=== PATIENT | female | born 1940 | race Caucasian/White ===

== ENCOUNTER → 2019-04-22 13:17 | Outpatient (CLI) | payer MEDICARE, SELFPAY ==
--- NOTE | 2019-04-22 13:24 | XR_ITS ---
XR DEXA axial skeleton HISTORY: ITS.REASON: OSTEOPENIA ORDERING PHYSICIAN: Sera Vivar PATIENT AGE: 79 years COMPARISON: None FINDINGS: The BMD measured at the Right femoral neck is 0.717 g/cm squared with a T score of -2.3. This is considered Osteopenic according to the World Health Organization criteria. Fracture risk is Moderate. Treatment is advised. The L1 L4 density has a T score 1.3. There is mild lumbar scoliosis convex right IMPRESSION: Osteopenia with moderate fracture risk. Treatment advised Suggest follow up exam march 2021
--- NOTE | 2019-04-22 13:25 | US_ITS ---
US urinary bladder CLINICAL INDICATION: ITS.REASON: URINARY INCONTINENCE ORDERING PHYSICIAN: Sera Vivar PATIENT AGE: 79 years Comparison: None FINDINGS: The urinary bladder has an unremarkable appearance smooth contour. No obvious mass. A small amount of postvoid residual urine calculated to be approximately 32 cc. IMPRESSION: 1. Mild amount of postvoid residual urine within the bladder 2. Otherwise negative bladder ultrasound
== END ==
PROVIDERS: PCP Family Medicine; Visit Provider Family Medicine
DX: M85.89 Other specified disorders of bone density and structure, multiple sites (principal); R32 Unspecified urinary incontinence
CPT/HCPCS: 76857; 77080

== ENCOUNTER 2021-04-20 09:36 | Inpatient (IN) | payer MEDICARE, BC, SELFPAY ==
[2021-04-20] VITALS (46 sets, daily range): BP systolic 62–150; BP diastolic 32–95; PULSE 61–148; RESP 12–21; TEMP 36.1–43; O2SAT 93–100; BMI 19.9; BMI 20.7
--- NOTE | 2021-04-20 | IR_ITS ---
APPROVED REPORT Patient Location: Emergent Hydropress Operator: MICHAEL Cueva RT (R) PROCEDURES Left heart catheterization Left ventriculogram Selective coronary angiogram Direct-current cardioversion INDICATION Acute non-ST elevation myocardial infarction, Preoperative evaluation for emergent incarcerated bowel/inguinal hernia, Atrial fibrillation rapid ventricular response, Type II myocardial infarction Informed consent was obtained prior to the procedure. COMPLICATIONS None Estimated Blood Loss: Less than 10 mls TECHNIQUE One percent lidocaine was used to anesthetize the right groin. The right femoral artery was accessed via the Seldinger technique. A 4-English sheath was placed in the right femoral artery. The JL-4 and JR-4 catheter was also used to perform left heart catheterization left ventriculogram and selective coronary angiogram. During the cardiac catheterization amiodarone load was being bolused with tentative plans to cardiovert patient due to her clinical situation. At the end of the procedure multiple severe stenoses were identified however the majority of the disease was branch disease involving an obtuse marginal artery and a diagonal artery. There was single-vessel disease involving the dominant right coronary artery however she had normal LV function with normal left ventricular end-diastolic pressure. Given patient's atrial fibrillation with elevated troponins representing demand ischemia with a type II myocardial infarction it was felt patient would do better with cardioversion therefore she was sedate and 50 J of direct current electricity was applied in a synchronized manner which easily converted patient into sinus rhythm. Patient tolerated the procedure well. At the end of the procedure patient is now being emergently transferred to the operating room for planned surgical intervention on the incarcerated hernia ANGIOGRAPHIC RESULTS The left main artery Normal The left anterior descending artery Has mild proximal 20% stenoses with mid vessel 20 and 30% stenoses. A moderate sized first diagonal artery has a long concentric 80% stenosis. This is a 2 mm vessel The circumflex artery Is a nondominant vessel yet still large giving rise to 3 moderate-sized first obtuse marginal arteries.. The first obtuse marginal artery is the smallest of the vessels at 1.5 mm in diameter and has a proximal concentric 70 to 80% stenosis while the second obtuse marginal artery is slightly larger so at 1.5 mm in diameter and has a proximal concentric 90% stenosis. The third obtuse marginal artery is widely patent The right coronary artery Is a dominant vessel and has an ostial 70% stenosis with mid vessel concentric 80% stenoses and distal 70% concentric stenosis with REBECCA-3 flow into a large posterior descending artery and a posterior lateral branch with a mid vessel 50% stenosis The OCONNELL ventriculogram reveals Normal to slightly hyperdynamic at 70% The left ventricular end-diastolic pressure Less than 10 mmHg IMPRESSION Severe single-vessel coronary artery disease involving the right coronary artery as described above Branch coronary artery disease involving the diagonal artery and first and second obtuse marginal arteries Normal to hyperdynamic ventricular function Normal left ventricular end-diastolic pressure Successful cardioversion into normal sinus rhythm PLAN 1. Patient is an acceptable risk from a cardiac standpoint to proceed with surgery. She has been successfully cardioverted and currently on an amiodarone drip. Patient's myocardial infarction is a type II myocardial infarction which is secondary to demand ischemia due to her fixed coronary obstructions mostly in her branch
--- NOTE | 2021-04-20 09:52 | ECG_ITS ---
APPROVED REPORT Exam: Resting ECG HR:154 bpm ECG Measurements Heart Rate 154 AXES QRSd 74 QRS 41 QT 296 T 101 QTc 474 Conclusion Atrial fibrillation with rapid ventricular response Nonspecific ST and T wave abnormality, probably digitalis effect Abnormal ECG Electronically signed by : Uriel Francois, 04/22/2021 07:30:12
--- NOTE | 2021-04-20 09:56 | HMH.EDGENADL ---
ED Disposition Clinical Impression: Rapid atrial fibrillation, New onset atrial fibrillation, Elevated troponin, Dehydration, Weakness, Incarcerated inguinal hernia, Small bowel obstruction Vomiting Qualifiers: Vomiting type: unspecified Vomiting Intractability: intractable Nausea presence: with nausea Qualified Code(s): R11.2 - Nausea with vomiting, unspecified Abdominal pain Qualifiers: Abdominal location: generalized Qualified Code(s): R10.84 - Generalized abdominal pain Disposition: Admitted As Inpatient Condition on Discharge: Serious Referrals: Sera Vivar [Primary Care Provider] - - Critical Care Critical Care Time: Yes Attestation: On 04/20/21, the high probability of a clinically significant, sudden or life threatening deterioration of the following system(s) required my full and direct attention, intervention and personal management. The time I documented below is in addition to time spent performing reported procedures but includes the following listed in this critical care notation. Total Critical Care Time: 35 Vital system(s) involved:: Circulatory Failure My critical care processes included: Assessment & monitoring of V/S, Initial and Re-exams, Data Review/Interpretation, Coordinating Care, Medication Orders and management, Documentation Medical Decision Making - Christian Inquiry Pt receiving controlled substance: No Vital Signs: 04/20/21 09:59 04/20/21 10:00 04/20/21 10:26 Temperature 97.0 F L Temperature Source Tympanic Pulse Rate 98 H 109 H Pulse Rate [Right Radial] 148 H Respiratory Rate 16 18 17 Blood Pressure 109/69 L 99/78 L Blood Pressure [Right Arm] 99/64 L Blood Pressure Mean 73 82 Blood Pressure Mean [Right Arm] 75 02 Sat by Pulse Oximetry 99 96 97 Oxygen Delivery Method Room Air 04/20/21 10:28 04/20/21 10:41 04/20/21 11:01 Temperature Temperature Source Pulse Rate 136 H 117 H 97 H Pulse Rate [Right Radial] Respiratory Rate 18 13 15 Blood Pressure 97/69 L 119/84 121/87 Blood Pressure [Right Arm] Blood Pressure Mean 72 97 93 Blood Pressure Mean [Right Arm] 02 Sat by Pulse Oximetry 96 96 95 Oxygen Delivery Method 04/20/21 11:09 04/20/21 11:52 04/20/21 12:00 Temperature Temperature Source Pulse Rate 98 H 116 H 112 H Pulse Rate [Right Radial] Respiratory Rate 16 15 15 Blood Pressure 126/95 H 133/89 140/95 H Blood Pressure [Right Arm] Blood Pressure Mean 104 97 110 Blood Pressure Mean [Right Arm] 02 Sat by Pulse Oximetry 100 97 96 Oxygen Delivery Method 04/20/21 12:30 04/20/21 13:00 04/20/21 13:13 Temperature 97.6 F Temperature Source Oral Pulse Rate 122 H 108 H 108 H Pulse Rate [Right Radial] Respiratory Rate 15 18 Blood Pressure 146/94 H 150/93 H 150/93 H Blood Pressure [Right Arm] Blood Pressure Mean 111 106 Blood Pressure Mean [Right Arm] 02 Sat by Pulse Oximetry 95 93 L Oxygen Delivery Method Room Air - Lab Data Lab Results 04/20/21 09:56: WBC 18.7 H, RBC 6.52 H, Hgb 16.8 H, Hct 52.4 H, MCV 80.4 L, MCH 25.7 L, MCHC 32.0, RDW 15.2, Plt Count 385, MPV 9.0, Neut % (Auto) 87.8 H, Lymph % (Auto) 6.9 L, [place] % (Auto) 4.6, Eos % (Auto) 0.5, Baso % (Auto) 0.2, Neut # (Auto) 16.4 H, Lymph # (Auto) 1.3, [place] # (Auto) 0.9, Eos # (Auto) 0.1, Baso # (Auto) 0.0, Total Counted 100, Neutrophils % (Manual) 87 H, Band Neutrophils % 2.0, Lymphocytes % (Manual) 6 L, Monocytes % (Manual) 5, Platelet Estimate Normal, RBC Morphology Normal 04/20/21 09:56: Sodium 135 L, Potassium 4.2, Chloride 100, Carbon Dioxide 21 L, Anion Gap 18.2 H, BUN 40 H, Creatinine 1.30 H, Estimated Creat Clear 26, Estimated GFR 39 L, Est GFR ( Amer) 47 L, Glucose 206 H, Calcium 10.2, Total Bilirubin 1.6 H, AST 56 H, ALT 29, Alkaline Phosphatase 84, Troponin I 1.87 H, Total Protein 8.0, Albumin 4.7, Globulin 3.3 H, Albumin/Globulin Ratio 1.4, Lipase 93 04/20/21 09:56: TSH 1.10, Free T4 Index 3.8 L, Thyroxine (T4) 10.8, T3 [place]
--- NOTE | 2021-04-20 10:08 | XR_ITS ---
PROCEDURE: XR CHEST PORTABLE CLINICAL HISTORY: rapid a.fib. COMPARISON: No exams were available for comparison FINDINGS: The cardiomediastinal silhouette and pulmonary vascularity are within normal limits. The lungs are clear without infiltrates, suspicious nodules, or pleural effusions. No acute bony abnormalities. IMPRESSION: No acute findings. Dictated by: Kar Patrick MD 04/20/2021 10:21 Kar Patrick MD in [facility] 04/20/2021 10:21
--- NOTE | 2021-04-20 10:10 | PC.NURSE ---
Rad at bedside.
[2021-04-20 10:26] LABS: Basophils % 0.2 % (0.1-2.0); Eosinophils # 0.1 K/mm3 (0.0-0.4); Eosinophils % 0.5 % (0.1-12.0); Hematocrit 52.4 % (37.0-47.0); Hemoglobin 16.8 g/dL (12.2-16.2); Lymphocytes # 1.3 K/mm3 (0.7-4.5); Lymphocytes % 6.9 % (10-50); Mean Corpuscular Hemoglobin 25.7 pg (27.0-31.2); Mean Corpuscular Volume 80.4 fl (81-99); Monocytes # 0.9 K/mm3 (0.1-1.0); Monocytes % 4.6 % (1.7-9.3); Neutrophils # 16.4 K/mm3 (1.8-7.8); Neutrophils % 87.8 % (37.0-80.0); Platelet Count 385 K/mm3 (142-424); Red Blood Count 6.52 M/mm3 (4.20-5.40); Red Cell Distribution Width 15.2 % (11.5-17.5); White Blood Count 18.7 K/mm3 (4.8-10.8)
[2021-04-20 10:34] LABS: Alanine Aminotransferase 29 U/L (12-78); Albumin Level 4.7 g/dl (3.5-5.0); Albumin/Globulin Ratio 1.4 (1.1-1.8); Alkaline Phosphatase 84 U/L (38-126); Anion Gap 18.2 mEq/L (5-15); Aspartate Amino Transferase 56 U/L (14-36); Bilirubin,Total 1.6 mg/dl (0.2-1.3); Blood Urea Nitrogen 40 mg/dl (7-17); Calcium 10.2 mg/dl (8.4-10.2); Carbon Dioxide 21 mmol/L (22.0-30.0); Chloride 100 mmol/L (98-107); Creatinine Clearance Estimated 26 mL/min (50-200); Estimated Glomerular Filt Rate 39 ml/min (>60); GFR (African American) 47 ML/MIN (>60); Globulin 3.3 g/dL (1.3-3.2); Glucose 206 mg/dl (74-100); Lipase 93 U/L (23-300); Potassium 4.2 mmoL/L (3.5-5.1); Sodium 135 mmol/L (136-145)
[2021-04-20 10:35] LABS: MANUAL DIFFERENTIAL MANUAL DIFFERENTIAL (MANUAL DIFF)
[2021-04-20 10:44] LABS: Lymphocytes % 6 % (10-50); Monocytes % 5 % (2-9); Neutrophils % 87 % (42-76); Platelet Estimate Normal; RBC Morphology Normal; Total Cells Counted 100
[2021-04-20 10:49] LABS: Troponin I 1.87 ng/ml (0.00-0.034)
--- NOTE | 2021-04-20 10:54 | CT_ITS ---
PROCEDURE: CT ABDOMEN PELVIS W CON CLINICAL INDICATION: abdominal pain COMPARISON: No exams were available for comparison TECHNIQUE: IV Contrast: 75ML Isovue 370 Oral Contrast None Axial images obtained with sagittal and coronal reformats. All CT scans at the facility use one or more dose reduction, viz: automated exposure control, ma/kV adjustment per patient size (including targeted exams where dose is matched to indication, i.e. head), or iterative reconstruction technique. FINDINGS: LOWER THORAX: There are bilateral breast calcifications. Nonemergent mammogram suggested. ABDOMEN & PELVIS: 9 mm hypodensity is present in the right hepatic lobe and may be due to small hepatic cyst. There has been a prior cholecystectomy. The spleen, adrenal glands, and pancreas have an unremarkable appearance. There is minimal bilateral renal ectasia. There is a 2 cm right renal cyst. There is mild diffuse small bowel dilatation with obstruction secondary to an incarcerated right inguinal hernia containing a loop of small bowel. The bowel loop in the hernia measures approximately 3 x 2.7 cm the small bowel is nondistended distal to this region. The dilated small bowel measures up 2 3.8 cm in dimension. There is no free air. No bowel wall gas or portal venous gas. No evidence of appendicitis or diverticulitis. Colonic diverticula are present. The uterus is slightly bulky for patient's age containing coarse calcifications consistent with fibroid involvement. There is mild lumbar scoliosis convex right with degenerative changes present in the lumbar spine. IMPRESSION: Moderate to high-grade small bowel obstruction secondary to incarcerated right inguinal hernia Dictated by: Kar Patrick MD 04/20/2021 12:31 Kar Patrick MD in [facility] 04/20/2021 12:31
--- NOTE | 2021-04-20 10:55 | PC.NURSE ---
Called Dr Red for consult on pt.
[2021-04-20 11:01] LABS: Lactic Acid 3.7 mmol/L (0.7-2.1)
[2021-04-20 11:03] LABS: Free Thyroxine Index 3.8 ug/dL (5.93-13.13); T4 (Thyroxine) 10.8 ug/dl (5.53-11.0); Triiodothryronine (T3) Uptake 35 % (23.5-40.5)
[2021-04-20 11:03] LABS: Microscopic,Cath URINE MICROSCOPIC (MICROSCOPIC)
[2021-04-20 11:10] LABS: Appearance,Urine/Cath CLEAR (Clear); Bilirubin,Cath 2+ (Negative); Blood, Urine/Cath 1+ (Negative); Color,Urine/Cath YELLOW (Yellow); Glucose,Urine/Cath (UA) Negative (Negative); Ketones,Urine/Cath 1+ (Negative); Leukocyte Esterase,Cath 1+ (Negative); Nitrate,Cath Negative (Negative); PH,Urine/Cath 5.5 (5.0-8.5); Protein,Urine/Cath 1+ (Negative); Specific Gravity, Urine/Cath >= 1.030 (1.005-1.030); Urobilinogen,Cath 0.2 EU/dl (0.2)
--- NOTE | 2021-04-20 11:10 | PC.NURSE ---
Pt being taken to CT
[2021-04-20 11:17] LABS: Bacteria,Urine/Cath 1+ /lpf; Squamous Epithelial Ur./Cath Occasional #/hpf (0-5)
[2021-04-20 11:34] LABS: Procalcitonin 0.092 ng/mL (0.0-2.0)
--- NOTE | 2021-04-20 11:55 | PC.NURSE ---
Pt back from MRI
--- NOTE | 2021-04-20 11:57 | HMH.CNCARD ---
History of Present Illness Consult date: 04/20/21 Requesting physician: Maximiliano Reynaga Consult reason: atrial fibrillation Chief complaint: nausea and weakness History of present illness: This is an 81 year old white female who came into the ED with weakness and vomiting. she states her symptoms started 2 days ago on Saturday. She states that she initially had abdominal pain that was diffuse and then she started vomiting. She states that she has been unable to eat anything since Saturday night because of the vomiting. She has been able to drink water. She states that she was very weak and this has progressively worsened. She states that she was so weak this morning she was unable to walk and she actually fell down. She states that she woke up vomiting this morning and her weakness was so profound that she decided to come into the emergency department. She denies any diarrhea. She states that she has been having bowel movements since Saturday and they have all been normal. She denies any chest pain or pressure. She denies any shortness of breath or edema. She denies any cough or fever. She denies any urinary tract symptoms. When she did fall this morning she hit a table when she fell but she did not lose consciousness. The patient states that on Saturday night when she went to bed she felt her heart racing and it has persisted to race since that time. She states that she can feel the palpitations. She denies a history of atrial fibrillation, [place] or coronary artery disease. She does see a inverter and clipper in [place] for skipped beats. [facility] History I have reviewed the patient's past medical history: Yes Medical History: Denies:: Arrhythmia, Atherosclerotic Heart Disease, Coronary Artery Disease *Have you ever received a pneumonia vaccine?: Yes *Have you received a flu vaccine this season?: Yes Other Surgeries: Yes: Cholecystectomy Amputation: No Fractures: No - *Social History Smoking Status: Never smoker Alcohol Intake: never Substance Use Type: denies use *Occupational Status:: retired *Travel in the last 8 weeks: None Family Hx:: No significant family history Meds Home Medications Medication Instructions Recorded Confirmed Type aspirin 81 mg tablet,delayed 81 mg PO DAILY 04/30/19 04/30/19 History release calcium carb 300 mg-D3 800 1 tab PO DAILY 04/30/19 04/30/19 History unit-mag ox 25 mg-coppersmith apprentice 0.5 mg-blu-Zn tablet omega-3 fatty acids 500 mg capsule 500 mg PO DAILY 04/30/19 04/30/19 History Allergies Allergy/AdvReac Type Severity Reaction Status Date / Time No Known Allergies Allergy Verified 04/30/19 09:01 Exam Vital signs and Labs for Last 24 Hours: Temp Pulse Resp BP Pulse Ox 97.0 F L 117 H 13 119/84 96 04/20/21 09:59 04/20/21 10:41 04/20/21 10:41 04/20/21 10:41 04/20/21 10:41 Laboratory Results - last 24 hr 04/20/21 09:56: WBC 18.7 H, RBC 6.52 H, Hgb 16.8 H, Hct 52.4 H, MCV 80.4 L, MCH 25.7 L, MCHC 32.0, RDW 15.2, Plt Count 385, MPV 9.0, Neut % (Auto) 87.8 H, Lymph % (Auto) 6.9 L, [place] % (Auto) 4.6, Eos % (Auto) 0.5, Baso % (Auto) 0.2, Neut # (Auto) 16.4 H, Lymph # (Auto) 1.3, [place] # (Auto) 0.9, Eos # (Auto) 0.1, Baso # (Auto) 0.0, Total Counted 100, Neutrophils % (Manual) 87 H, Band Neutrophils % 2.0, Lymphocytes % (Manual) 6 L, Monocytes % (Manual) 5, Platelet Estimate Normal, RBC Morphology Normal 04/20/21 09:56: Sodium 135 L, Potassium 4.2, Chloride 100, Carbon Dioxide 21 L, Anion Gap 18.2 H, BUN 40 H, Creatinine 1.30 H, Estimated Creat Clear 26, Estimated GFR 39 L, Est GFR ( Amer) 47 L, Glucose 206 H, Calcium 10.2, Total Bilirubin 1.6 H, AST 56 H, ALT 29, Alkaline Phosphatase 84, Troponin I 1.87 H, Total Protein 8.0, Albumin 4.7, Globulin 3.3 H, Albumin/Globulin Ratio 1.4, Lipase 93 04/20/21 09:56: TSH 1.10, Free T4 Index 3.8 L, Thyroxine (T4) 10.8, T3 Uptake 35 04/20/21 09:56: Procalcitonin 0.092 04/20/21 10:23: Lactate 3.7 H 04/20/21 10:45: Urine Color Yellow, Urine Appeara
--- NOTE | 2021-04-20 12:02 | PC.NURSE ---
Rad called to advised there is issues with [facility] and they are working on getting the read to us.
--- NOTE | 2021-04-20 12:40 | PC.NURSE ---
Titrated diltazem drip to 15/hr at this time, pt blood pressure stable, HR in 120's.
--- NOTE | 2021-04-20 12:49 | PC.NURSE ---
Called Dr Bustamante for a consult with MD Reynaga
--- NOTE | 2021-04-20 12:51 | PC.NURSE ---
speaking with Robby at this time.
--- NOTE | 2021-04-20 12:56 | PC.NURSE ---
Dr Reynaga speaking to Dr Red about pt, before pt goes to surgery.
--- NOTE | 2021-04-20 13:08 | PC.NURSE ---
pt leaving for manager cardiac cath at this time.
--- NOTE | 2021-04-20 13:11 | PC.NURSE ---
bolt labeler staff at bedside with consent signed, taken at this time to flower shop laborer/designer.
--- NOTE | 2021-04-20 13:15 | PC.NURSE ---
MD Reynaga speaking with [place] at this time.
--- NOTE | 2021-04-20 13:44 | HMH.GSCON ---
*Admission Date: 04/20/21 *Reason for consult:: Right inguinal hernia *History of present illness: This is an 81-year-old female who presents emergency department with increasing abdominal pain and nonreducible right groin bulge . She was diagnosed following physical exam, as well as, CT scan with incarcerated right inguinal hernia with associated bowel obstruction. She was also determined to be in atrial fibrillation and her troponin was elevated. The cardiology service was consulted for further evaluation and management. She was taken to the cardiac suite for emergent catheterization. She has been cleared by cardiology to proceed with emergent repair of her incarcerated hernia and possible bowel resection. Review of Systems - Review of Systems Review of systems:: unable to obtain - *Neurologic Reports weakness, Denies frequent falls, Denies fainting [facility] History Medical History: Denies:: Arrhythmia, Atherosclerotic Heart Disease, Coronary Artery Disease *Have you ever received a pneumonia vaccine?: Yes *Have you received a flu vaccine this season?: Yes Other Surgeries: Yes: Cholecystectomy Amputation: No Fractures: No - *Social History Smoking Status: Never smoker Alcohol Intake: never Substance Use Type: denies use *Occupational Status:: retired *Travel in the last 8 weeks: None Family Hx:: No significant family history Meds Home Medications Medication Instructions Recorded Confirmed Type aspirin 81 mg tablet,delayed 81 mg PO DAILY 04/30/19 04/20/21 History release calcium carb 300 mg-D3 800 1 tab PO DAILY 04/30/19 04/20/21 History unit-mag ox 25 mg-senior copywriter 0.5 mg-blu-Zn tablet omega-3 fatty acids 500 mg capsule 500 mg PO DAILY 04/30/19 04/20/21 History Allergies Allergy/AdvReac Type Severity Reaction Status Date / Time No Known Allergies Allergy Verified 04/30/19 09:01 Exam Vital signs and Labs for Last 24 Hours: Temp Pulse Resp BP Pulse Ox 97.6 F 108 H 18 150/93 H 93 L 04/20/21 13:13 04/20/21 13:13 04/20/21 13:13 04/20/21 13:13 04/20/21 13:00 Laboratory Results - last 24 hr 04/20/21 09:56: WBC 18.7 H, RBC 6.52 H, Hgb 16.8 H, Hct 52.4 H, MCV 80.4 L, MCH 25.7 L, MCHC 32.0, RDW 15.2, Plt Count 385, MPV 9.0, Neut % (Auto) 87.8 H, Lymph % (Auto) 6.9 L, [place] % (Auto) 4.6, Eos % (Auto) 0.5, Baso % (Auto) 0.2, Neut # (Auto) 16.4 H, Lymph # (Auto) 1.3, [place] # (Auto) 0.9, Eos # (Auto) 0.1, Baso # (Auto) 0.0, Total Counted 100, Neutrophils % (Manual) 87 H, Band Neutrophils % 2.0, Lymphocytes % (Manual) 6 L, Monocytes % (Manual) 5, Platelet Estimate Normal, RBC Morphology Normal 04/20/21 09:56: Sodium 135 L, Potassium 4.2, Chloride 100, Carbon Dioxide 21 L, Anion Gap 18.2 H, BUN 40 H, Creatinine 1.30 H, Estimated Creat Clear 26, Estimated GFR 39 L, Est GFR ( Amer) 47 L, Glucose 206 H, Calcium 10.2, Total Bilirubin 1.6 H, AST 56 H, ALT 29, Alkaline Phosphatase 84, Troponin I 1.87 H, Total Protein 8.0, Albumin 4.7, Globulin 3.3 H, Albumin/Globulin Ratio 1.4, Lipase 93 04/20/21 09:56: TSH 1.10, Free T4 Index 3.8 L, Thyroxine (T4) 10.8, T3 Uptake 35 04/20/21 09:56: Procalcitonin 0.092 04/20/21 10:23: Lactate 3.7 H 04/20/21 10:45: Urine Color Yellow, Urine Appearance Clear, Urine pH 5.5, Ur Specific [place] >= 1.030, Urine Protein 1+, Urine Glucose (UA) Negative, Urine Ketones 1+, Urine Blood 1+, Urine Nitrate Negative, Urine Bilirubin 2+ A, Urine Urobilinogen 0.2, Ur Leukocyte Esterase 1+ A, Urine RBC 5-10, Urine WBC 5-10, Ur Squamous Epith Cells Occasional, Urine Bacteria 1+ I & O for Last 24 hours: Intake & Output 04/18/21 04/19/21 04/20/21 04/21/21 11:59 11:59 11:59 11:59 Weight 109 lb Microbiology Reports for the Last 24 Hours: Microbiology 04/20/21 10:25 Nasopharyngeal Coronavirus COVID-19 PCR - Final - Constitutional Comments: Sedated for cardiac catheterization - *Routine Respiratory Exam Comments: Currently sedated and in the cardiac suit
--- NOTE | 2021-04-20 13:58 | SUR.PREOP ---
Dr. Bustamante at pt. bedside to explain the procedure, verbal consent was obtained prior to heart cath. Pt. and granddaughter aware of procedure to be done and deny any questions/ concerns at this time.
--- NOTE | 2021-04-20 14:35 | P.PN_ITS ---
[facility] Anesthesia Checklist - Structural Data Admitted From: Inpatient Planned Operative Procedure/s: exp laparotomy Consent for Planned Operative Procedure(s) Verified: Yes - Airway Assessment C-Spine Mobility Assessed: Yes TMJ Mobility Assessed: Yes Dentition: Good Dentition - Neurological Assessment Level of Consciousness: Awake, Alert, Appropriate - Anesthesia Plan Anesthesia Risk discussed: Yes Anesthesia Plan: Verified ASA Class: IV Anesthesia Type: General [facility] History I have reviewed the patient's past medical history: Yes Medical History: Denies:: Arrhythmia, Atherosclerotic Heart Disease, Coronary Artery Disease *Have you ever received a pneumonia vaccine?: Yes *Have you received a flu vaccine this season?: Yes Anesthesia experience/problems:: none Other Surgeries: Yes: Cholecystectomy Amputation: No Fractures: No - *Social History Smoking Status: Never smoker Alcohol Intake: never Substance Use Type: denies use *Occupational Status:: retired *Travel in the last 8 weeks: None Family Hx:: No significant family history
[2021-04-20 14:40] LABS: Reflex Lactic Add Lactic Reflex
--- NOTE | 2021-04-20 15:27 | SUR.OPER ---
1516 heart cath area free of hematoma and no s/s bleeding
--- NOTE | 2021-04-20 16:09 | HMH.OPNOTE ---
Date of procedure: 04/20/21 Pre-op Diagnosis:: Incarcerated right inguinal hernia with bowel obstruction Post-op Diagnosis:: Incarcerated right femoral hernia with obstruction and possible small bowel necrosis Procedure performed:: Focused exploratory laparotomy through right lower abdominal wall incision with partial small bowel resection Surgeon:: Avery Bustamante MD [employer] OPERATIONS SPECIALIST:: Rylan Ruiz Anesthesia: GETA Estimated blood loss (mL): 25 Operative findings:: Extremely small right femoral hernia with incarcerated loops of small bowel Incarcerated the small bowel was necrotic Severe inflammatory changes throughout region and femoral vein dilation Dilated and inflamed femoral vein encroaching upon tiny incarceration. Primary repair deemed unsafe due to concerns for likely vascular injury. Operative note:: After informed consent was obtained the patient was taken to the operating room and placed in the supine position. General anesthesia was induced and her abdomen was prepped and draped in a sterile fashion. A transverse right lower abdominal wall incision was made with scalpel. The deep subcutaneous tissue was dissected through Meaghan's fascia to the level of the external aponeurosis. The external fascial margin was longitudinally exposing the underlying fascial layers that were also opened longitudinally. The peritoneum was carefully preserved. Dilation of the small bowel was immediately encountered. Evaluation revealed small bowel protruding to a tiny femoral defect. The small bowel was carefully retracted (hernia reduced). The incarcerated portion of small bowel was necrotic. A BRYCE stapling device was utilized to transect the small bowel proximal distal to the area of necrosis. A primary stapled anastomosis was then completed with the BRYCE stapler. The common otomy was then closed with a TX 60. Imbrication with 3-0 Nurolon was completed. Imbrication included the crotch , as well as the staple margin. The small mesenteric defect was reapproximated with running Vicryl suture. The anastomosis was patent. The small bowel was carefully placed back into the abdominal cavity. Thorough irrigation was completed. No sign of active bleeding or leakage was noted. The tiny femoral hernia was carefully evaluated. The hernia sac was inverted and incarcerated preperitoneal fat was encountered. Thorough evaluation revealed severe inflammatory changes within the region and dilation of the femoral vein. The dilated vein encroached the defect. Due to the extremely small nature of the defect, as well as, the dilated/inflamed vein the decision was made to avoid attempts at primary hernia repair. Repeat irrigation was completed. The individual fascial layers were reapproximated with running Vicryl suture. Meaghan's fascia was also reapproximated with running Vicryl suture and skin was stapled. Dressings were applied and the patient was transferred to recovery in stable condition. Condition: stable Disposition: PACU Specimens:: Partial small bowel (incarcerated small bowel with necrosis) Complications:: No immediate
--- NOTE | 2021-04-20 16:20 | P.PN_ITS ---
[facility] Anesthesia Record Part I Intake, IV Amount: 1,500 Estimated blood loss (mL): 250 Urine output (mL): 400 Blood Pressure: 122/66 SaO2: 97 Pulse Rate: 96 Respiratory Rate: 12 Temperature: 97.4 F Patient is:: Awake, Drowsy Stable to PACU at:: 16:25
--- NOTE | 2021-04-20 16:33 | SUR.PHASEI ---
1610 heart cath area free of hematoma and no s/s bleeding
--- NOTE | 2021-04-20 17:10 | PC.NURSE ---
1649-detailed report called to TIMOTHY Marino [id number]-pt transported to 2nd floor room 217 via hospital bed with bari rails up per TIMOTHY Figueroa and Timothy Ladd and left in care of TIMOTHY Marino with bed locked in lowest position, vss, family at bedside, pt stable
--- NOTE | 2021-04-20 17:45 | PC.NURSE ---
pt states that she wishes to be a DNR. She has sedation on board and is unable to sign DNR form. Contacted daughter, Eileen, who is POA ([phone]) and explained that pt wants to be a DNR. This is news to her and she is not onboard with DNR status. She asked that pt be a FULL code until she arrives to [facility] tomorrow.
--- NOTE | 2021-04-20 18:22 | PC.NURSE ---
Automatic BP 68/36. Manual 68/40. Paged oncall for Dr. Duarte (Dr. Emanuel).
--- NOTE | 2021-04-20 18:34 | PC.NURSE ---
Received call from Dr. Emanuel. He ordered 1L LR bolus. Order faxed to pharmacy.
--- NOTE | 2021-04-20 20:31 | ECG_ITS ---
APPROVED REPORT Exam: Resting ECG HR:72 bpm ECG Measurements Heart Rate 72 AXES VA 146 P 52 QRSd 72 QRS 66 QT 486 T 51 QTc 532 Conclusion Normal sinus rhythm with sinus arrhythmia Nonspecific T wave abnormality Prolonged QT Abnormal ECG Electronically signed by : Uriel Francois, 04/22/2021 07:27:31
[2021-04-20 20:50] LABS: ABG Base Excess -4.4 mmol/L (-2.4-2.3); ABG HCO3 19.8 mmhg (22.0-26.0); ABG Oxygen Saturation 97 % (90-100); ABG PH 7.44 mmol/L (7.35-7.45); ABG PO2 78.6 mmhg (80-100); ABG TCO2 20.7 mmhg (23-27)
[2021-04-20 20:52] LABS: Allen's Test Acceptable; Source Left Radial
[2021-04-20 20:58] LABS: Basophils % 0.1 % (0.1-2.0); Eosinophils # 0.1 K/mm3 (0.0-0.4); Eosinophils % 0.3 % (0.1-12.0); Hematocrit 33.9 % (37.0-47.0); Lymphocytes # 0.7 K/mm3 (0.7-4.5); Lymphocytes % 3.5 % (10-50); Mean Corpuscular HGB Conc 32.9 g/dL (31.8-35.4); Mean Corpuscular Hemoglobin 26.5 pg (27.0-31.2); Mean Corpuscular Volume 80.5 fl (81-99); Mean Platelet Volume 7.6 fl (7.4-10.4); Monocytes # 1.4 K/mm3 (0.1-1.0); Neutrophils # 17.1 K/mm3 (1.8-7.8); Neutrophils % 89.1 % (37.0-80.0); Platelet Count 286 K/mm3 (142-424); Red Blood Count 4.21 M/mm3 (4.20-5.40); Red Cell Distribution Width 15.3 % (11.5-17.5); White Blood Count 19.2 K/mm3 (4.8-10.8)
[2021-04-20 20:59] LABS: MANUAL DIFFERENTIAL MANUAL DIFFERENTIAL (MANUAL DIFF)
[2021-04-20 21:02] LABS: Hemoglobin 11.1 g/dL (12.2-16.2)
[2021-04-20 21:14] LABS: Alanine Aminotransferase 16 U/L (12-78); Albumin Level 2.3 g/dl (3.5-5.0); Albumin/Globulin Ratio 1.1 (1.1-1.8); Alkaline Phosphatase 39 U/L (38-126); Aspartate Amino Transferase 44 U/L (14-36); Bilirubin,Total 0.9 mg/dl (0.2-1.3); Blood Urea Nitrogen 30 mg/dl (7-17); Carbon Dioxide 21 mmol/L (22.0-30.0); Chloride 106 mmol/L (98-107); Creatinine Clearance Estimated 35 mL/min (50-200); Estimated Glomerular Filt Rate 69 ml/min (>60); GFR (African American) 83 ML/MIN (>60); Globulin 2.1 g/dL (1.3-3.2); Glucose 178 mg/dl (74-100); Magnesium 1.7 mg/dl (1.6-2.3); Sodium 130 mmol/L (136-145); Total Protein,Serum 4.4 g/dl (6.3-8.2)
[2021-04-20 21:15] LABS: Lactic Acid Follow Up (RFLX 1) 3.2 mmol/L (0.7-2.1)
[2021-04-20 21:17] LABS: Lymphocytes % 7 % (10-50); Monocytes % 1 % (2-9); Neutrophils % 92 % (42-76); Total Cells Counted 100
[2021-04-20 21:18] LABS: Platelet Estimate Normal
[2021-04-20 21:19] LABS: Microcytosis 1+
[2021-04-20 21:48] LABS: Calcium 7.7 mg/dl (8.4-10.2)
--- NOTE | 2021-04-20 22:47 | HMH.HP ---
*Admission Date: 04/20/21 *Chief complaint: Abdominal pain *History of present illness: Ms. Reynolds is a pleasant 81-year-old female with no significant past medical history. She presented to the ER this afternoon due to worsening weakness, vomiting, abdominal pain. States that she began getting sick on Saturday with belly pain and nausea. Has proceeded to have emesis for the past 2 to 3 days with green emesis. Unable to tolerate any food or fluids. Still having some small bowel movements. Urine output has dwindled. Symptoms progressed to the point that her vomiting was intractable and felt weak to the point that she needed to seek higher care. She fell this morning but did not injure herself and decided to come to the ER for further management. No loss of consciousness. Denies chest pain or shortness of breath. Denies cough or cold symptoms. Denies diarrhea, says she has been having bowel movements. Denies urinary symptoms. On arrival to the ER she was noted to be in A. fib. No previous history of atrial fibrillation, has seen a licensed final expense agents once a year for the past several years with no medications for rate control her blood pressure. Blood pressure normally in the 120s/70s per her report. Takes a daily baby aspirin and supplements. Otherwise no medications. Initial labs positive for an elevated troponin, leukocytosis, elevated lactate. Abdominal CT showed incarcerated right inguinal hernia. Both cardiology and surgery were consulted from the ER. Given her new onset A. fib, she was taken to the Electrical Installation Inspector for cardioversion and left heart cath. See report for full details, no flow-limiting lesions found. Good response to cardioversion with transition to normal sinus rhythm. Patient treated with amiodarone. Subsequently taken to the operating room for right inguinal hernia repair/ex lap. Patient admitted to medicine thereafter. She has unfortunately developed hypotension after her surgeries. Has been treated with 2 L of LR bolused along with initiation of Levophed with improved stability and blood pressure. Patient has remained conscious and oriented through events postop. [facility] History I have reviewed the patient's past medical history: Yes (No significant history per her report) Medical History: Denies:: Arrhythmia, Atherosclerotic Heart Disease, Coronary Artery Disease, Diabetes Mellitus Type 1, Diabetes Mellitus Type 2 *Have you ever received a pneumonia vaccine?: No *Have you received a flu vaccine this season?: No Anesthesia experience/problems:: none Other Surgeries: Yes: Cholecystectomy Amputation: No Fractures: No - *Social History Smoking Status: Never smoker Alcohol Intake: never Substance Use Type: denies use *Occupational Status:: retired Household Members: none *Travel in the last 8 weeks: None Family Hx:: No significant family history Review of Systems - Review of Systems Review of systems:: pertinent systems reviewed and negative unless documented below (14 point review of systems performed, pertinent positives and negatives as per HPI) - *Neurologic Reports weakness, Denies frequent falls, Denies fainting Meds Home Medications Medication Instructions Recorded Confirmed Type aspirin 81 mg tablet,delayed 81 mg PO DAILY 04/30/19 04/20/21 History release calcium carb 300 mg-D3 800 1 tab PO DAILY 04/30/19 04/20/21 History 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
[2021-04-20 22:50] LABS: Reflex Lactic (2 hrs) Add Lactic Reflex
[2021-04-20 23:19] LABS: Hematocrit 33.7 % (37.0-47.0); Hemoglobin 10.5 g/dL (12.2-16.2)
[2021-04-20 23:29] LABS: Lactic Acid Follow up (RFLX 2) 3.3 mmol/L (0.7-2.1)
[2021-04-20 23:46] LABS: Troponin I 5.86 ng/ml (0.00-0.034)
[2021-04-21] VITALS (42 sets, daily range): BP systolic 89–146; BP diastolic 39–72; PULSE 75–103; RESP 18–24; TEMP 36.4–37.1; O2SAT 94–97; BMI 20.8; BMI 20.7
--- NOTE | 2021-04-21 03:17 | PC.NURSE ---
shift summary, received patient from off going nurse. blood pressure low, patient receiving 1000 ml bolus per order. communication order received from offgoing nurse to call dr. porter when bolus complete. patient awake, alert and oriented. bilateral groin dressing clean, dry and intact. abdomen tender but soft. have been unable to receive any pain medication due to low blood pressures. after bolus completed sbp dropped down into the 60s, new order received from dr. porter for additional 1000 ml bolus, multiple repeat labs, ekg and abg. all results called and copy of ekg sent to dr. porter. new orders received to discontinue amiodarone drip and start levophed. at 2200 sbp remains low on 5 mcq, levophed increased to 10 mcq, dr. porter arrived to floor to evaluate patient, shortly after dr. mario arrived to floor to assess the patient. new orders placed by dr. porter and carried out.2300 patient has stabilized on levophed, repeat labs drawn again. critical troponin results called to dr. porter no new orders received.
[2021-04-21 06:16] LABS: Basophils % 0.1 % (0.1-2.0); Eosinophils % 0.1 % (0.1-12.0); Hematocrit 30.7 % (37.0-47.0); Hemoglobin 9.9 g/dL (12.2-16.2); Lymphocytes # 1.4 K/mm3 (0.7-4.5); Mean Corpuscular HGB Conc 32.2 g/dL (31.8-35.4); Mean Corpuscular Hemoglobin 25.8 pg (27.0-31.2); Mean Corpuscular Volume 80.1 fl (81-99); Mean Platelet Volume 7.9 fl (7.4-10.4); Monocytes # 1.4 K/mm3 (0.1-1.0); Neutrophils # 16.8 K/mm3 (1.8-7.8); Neutrophils % 85.8 % (37.0-80.0); Platelet Count 286 K/mm3 (142-424); Red Blood Count 3.84 M/mm3 (4.20-5.40); Red Cell Distribution Width 15.5 % (11.5-17.5); White Blood Count 19.6 K/mm3 (4.8-10.8)
--- NOTE | 2021-04-21 06:17 | PC.NURSE ---
end of summary note patient blood pressure has remained labile with max dose of levophed at 15 mcq/min and current levophed dose at 13 mcq/min with bp 92/56 with map 68. grayson draining clear, yellow urine. urine output has been minimal but adequate. bilateral groin dressing remain clean, dry and intact. abd soft to touch. denies nausea and has not passed gas as of yet. instructed patient to inform staff when she does. boring mill operator has shown sr in the 70s until levophed started then heart rate increased into the 90s. breath sounds remain clear. patient has remained awake alert and oriented
[2021-04-21 06:18] LABS: Alanine Aminotransferase 22 U/L (12-78); Albumin Level 2.4 g/dl (3.5-5.0); Albumin/Globulin Ratio 1.1 (1.1-1.8); Alkaline Phosphatase 41 U/L (38-126); Anion Gap 11.1 mEq/L (5-15); Aspartate Amino Transferase 68 U/L (14-36); Blood Urea Nitrogen 36 mg/dl (7-17); Calcium 7.7 mg/dl (8.4-10.2); Carbon Dioxide 18 mmol/L (22.0-30.0); Chloride 107 mmol/L (98-107); Creatinine Clearance Estimated 27 mL/min (50-200); Estimated Glomerular Filt Rate 39 ml/min (>60); GFR (African American) 47 ML/MIN (>60); Globulin 2.2 g/dL (1.3-3.2); Glucose 190 mg/dl (74-100); Magnesium 1.7 mg/dl (1.6-2.3); Potassium 4.1 mmoL/L (3.5-5.1); Sodium 132 mmol/L (136-145); Total Protein,Serum 4.6 g/dl (6.3-8.2)
[2021-04-21 06:35] LABS: MANUAL DIFFERENTIAL MANUAL DIFFERENTIAL (MANUAL DIFF)
--- NOTE | 2021-04-21 06:46 | HMH.GSPN ---
Subjective Narrative: She states that she feels a little better this morning . Her abdominal pain has improved. She remains on pressors per primary service for hypotension. Progress Note: A&P (1) Septic shock Status: Acute (2) Non-ST elevation myocardial infarction (NSTEMI) Status: Acute (3) Elevated troponin Status: Acute (4) New onset atrial fibrillation Status: Acute (5) Rapid atrial fibrillation Status: Acute (6) Vomiting Status: Acute (7) Weakness Status: Acute (8) Incarcerated inguinal hernia Status: Acute Assessment and plan: No definitive sign of recurrent femoral hernia incarceration, significant blood loss, or anastomotic leak. She will continue IV antibiotics and close ongoing observation. (9) Small bowel obstruction Status: Acute Exam Vital signs and Labs for Last 24 Hours: Temp Pulse Resp BP Pulse Ox 97.5 F L 97 H 20 107/70 L 96 04/21/21 04:00 04/21/21 06:00 04/21/21 06:00 04/21/21 06:00 04/21/21 06:00 Laboratory Results - last 24 hr 04/20/21 09:56: WBC 18.7 H, RBC 6.52 H, Hgb 16.8 H, Hct 52.4 H, MCV 80.4 L, MCH 25.7 L, MCHC 32.0, RDW 15.2, Plt Count 385, MPV 9.0, Neut % (Auto) 87.8 H, Lymph % (Auto) 6.9 L, [place] % (Auto) 4.6, Eos % (Auto) 0.5, Baso % (Auto) 0.2, Neut # (Auto) 16.4 H, Lymph # (Auto) 1.3, [place] # (Auto) 0.9, Eos # (Auto) 0.1, Baso # (Auto) 0.0, Total Counted 100, Neutrophils % (Manual) 87 H, Band Neutrophils % 2.0, Lymphocytes % (Manual) 6 L, Monocytes % (Manual) 5, Platelet Estimate Normal, RBC Morphology Normal 04/20/21 09:56: Sodium 135 L, Potassium 4.2, Chloride 100, Carbon Dioxide 21 L, Anion Gap 18.2 H, BUN 40 H, Creatinine 1.30 H, Estimated Creat Clear 26, Estimated GFR 39 L, Est GFR ( Amer) 47 L, Glucose 206 H, Calcium 10.2, Total Bilirubin 1.6 H, AST 56 H, ALT 29, Alkaline Phosphatase 84, Troponin I 1.87 H, Total Protein 8.0, Albumin 4.7, Globulin 3.3 H, Albumin/Globulin Ratio 1.4, Lipase 93 04/20/21 09:56: TSH 1.10, Free T4 Index 3.8 L, Thyroxine (T4) 10.8, T3 Uptake 35 04/20/21 09:56: Procalcitonin 0.092 04/20/21 10:23: Lactate 3.7 H 04/20/21 10:45: Urine Color Yellow, Urine Appearance Clear, Urine pH 5.5, Ur Specific [place] >= 1.030, Urine Protein 1+, Urine Glucose (UA) Negative, Urine Ketones 1+, Urine Blood 1+, Urine Nitrate Negative, Urine Bilirubin 2+ A, Urine Urobilinogen 0.2, Ur Leukocyte Esterase 1+ A, Urine RBC 5-10, Urine WBC 5-10, Ur Squamous Epith Cells Occasional, Urine Bacteria 1+ 04/20/21 20:16: Specimen Source Left radial, ABG pH 7.44, ABG pCO2 30.0 L, ABG pO2 78.6 L, ABG HCO3 19.8 L, ABG Total CO2 20.7 L, ABG O2 Saturation 97, ABG Base Excess -4.4 L, Kar Test Acceptable 04/20/21 20:50: Lactate 3.2 H 04/20/21 20:50: WBC 19.2 H, RBC 4.21 D, Hgb 11.1 L D, Hct 33.9 L, MCV 80.5 L, MCH 26.5 L, MCHC 32.9, RDW 15.3, Plt Count 286 D, MPV 7.6, Neut % (Auto) 89.1 H, Lymph % (Auto) 3.5 L, [place] % (Auto) 7.0, Eos % (Auto) 0.3, Baso % (Auto) 0.1, Neut # (Auto) 17.1 H, Lymph # (Auto) 0.7, [place] # (Auto) 1.4 H, Eos # (Auto) 0.1, Baso # (Auto) 0.0, Total Counted 100, Neutrophils % (Manual) 92 H, Lymphocytes % (Manual) 7 L, Monocytes % (Manual) 1 L, Platelet Estimate Normal, RBC Morphology Not Reportable, Microcytosis 1+ 04/20/21 20:50: Sodium 130 L, Potassium 4.0, Chloride 106, Carbon Dioxide 21 L, Anion Gap 7.0, BUN 30 H, Creatinine 0.80 D, Estimated Creat Clear 35, Estimated GFR 69, Est GFR ( Amer) 83 D, Glucose 178 H, Calcium 7.7 L D, Magnesium 1.7, Total Bilirubin 0.9, AST 44 H, ALT 16 D, Alkaline Phosphatase 39, Total Protein 4.4 L D, Albumin 2.3 L D, Globulin 2.1, Albumin/Globulin Ratio 1.1 04/20/21 21:36: Blood Type O Positive, Antibody Screen Negative, Crossmatch ([facility]) See Detail 04/20/21 21:36: Blood Type Cancelled, Antibody Screen Cancelled 04/20/21 23:00: Lactate 3.3 H 04/20/21 23:00: Hgb 10.5 L, Hct 33.7 L 04/20/21 23:00: Troponin I 5.86 H 04/21/21 00:00: Blood Type Confirm O Positive 04/21/21 06:00: WBC 19.6 H, RBC 3.
[2021-04-21 06:50] LABS: Lactate Arterial 2.6 mmol/L (0.4-2.0)
--- NOTE | 2021-04-21 07:29 | HMH.ACPN2 ---
Internal Medicine - PN: Subj *Date: 04/21/21 *Time: 08:00 Interval history: Ms. Reynolds remained hemodynamically stable overnight. Slept poorly per her report. Denies any chest pain or nausea. Continues to have diffuse abdominal pain. Remains afebrile. Continued to require Levophed through the night to maintain systolic blood pressure greater than 90. No family at bedside this morning however family at bedside this afternoon on afternoon rounds. Updated him on her clinical condition, hospital course, and prognosis. Improved through the course of the day with the ability to come off of Levophed with increased maintenance fluid rate. Showing slight improvement in urine output. Has developed hiccups over the course of the day but no vomiting or passing of gas/stool. Exam Vital signs and Labs for Last 24 Hours: Temp Pulse Resp BP Pulse Ox 97.5 F L 97 H 20 107/70 L 96 04/21/21 04:00 04/21/21 06:00 04/21/21 06:00 04/21/21 06:00 04/21/21 06:00 Laboratory Results - last 24 hr 04/20/21 09:56: WBC 18.7 H, RBC 6.52 H, Hgb 16.8 H, Hct 52.4 H, MCV 80.4 L, MCH 25.7 L, MCHC 32.0, RDW 15.2, Plt Count 385, MPV 9.0, Neut % (Auto) 87.8 H, Lymph % (Auto) 6.9 L, [place] % (Auto) 4.6, Eos % (Auto) 0.5, Baso % (Auto) 0.2, Neut # (Auto) 16.4 H, Lymph # (Auto) 1.3, [place] # (Auto) 0.9, Eos # (Auto) 0.1, Baso # (Auto) 0.0, Total Counted 100, Neutrophils % (Manual) 87 H, Band Neutrophils % 2.0, Lymphocytes % (Manual) 6 L, Monocytes % (Manual) 5, Platelet Estimate Normal, RBC Morphology Normal 04/20/21 09:56: Sodium 135 L, Potassium 4.2, Chloride 100, Carbon Dioxide 21 L, Anion Gap 18.2 H, BUN 40 H, Creatinine 1.30 H, Estimated Creat Clear 26, Estimated GFR 39 L, Est GFR ( Amer) 47 L, Glucose 206 H, Calcium 10.2, Total Bilirubin 1.6 H, AST 56 H, ALT 29, Alkaline Phosphatase 84, Troponin I 1.87 H, Total Protein 8.0, Albumin 4.7, Globulin 3.3 H, Albumin/Globulin Ratio 1.4, Lipase 93 04/20/21 09:56: TSH 1.10, Free T4 Index 3.8 L, Thyroxine (T4) 10.8, T3 Uptake 35 04/20/21 09:56: Procalcitonin 0.092 04/20/21 10:23: Lactate 3.7 H 04/20/21 10:45: Urine Color Yellow, Urine Appearance Clear, Urine pH 5.5, Ur Specific [place] >= 1.030, Urine Protein 1+, Urine Glucose (UA) Negative, Urine Ketones 1+, Urine Blood 1+, Urine Nitrate Negative, Urine Bilirubin 2+ A, Urine Urobilinogen 0.2, Ur Leukocyte Esterase 1+ A, Urine RBC 5-10, Urine WBC 5-10, Ur Squamous Epith Cells Occasional, Urine Bacteria 1+ 04/20/21 20:14: ABG Lactate 2.6 H 04/20/21 20:16: Specimen Source Left radial, ABG pH 7.44, ABG pCO2 30.0 L, ABG pO2 78.6 L, ABG HCO3 19.8 L, ABG Total CO2 20.7 L, ABG O2 Saturation 97, ABG Base Excess -4.4 L, Kar Test Acceptable 04/20/21 20:50: Lactate 3.2 H 04/20/21 20:50: WBC 19.2 H, RBC 4.21 D, Hgb 11.1 L D, Hct 33.9 L, MCV 80.5 L, MCH 26.5 L, MCHC 32.9, RDW 15.3, Plt Count 286 D, MPV 7.6, Neut % (Auto) 89.1 H, Lymph % (Auto) 3.5 L, [place] % (Auto) 7.0, Eos % (Auto) 0.3, Baso % (Auto) 0.1, Neut # (Auto) 17.1 H, Lymph # (Auto) 0.7, [place] # (Auto) 1.4 H, Eos # (Auto) 0.1, Baso # (Auto) 0.0, Total Counted 100, Neutrophils % (Manual) 92 H, Lymphocytes % (Manual) 7 L, Monocytes % (Manual) 1 L, Platelet Estimate Normal, RBC Morphology Not Reportable, Microcytosis 1+ 04/20/21 20:50: Sodium 130 L, Potassium 4.0, Chloride 106, Carbon Dioxide 21 L, Anion Gap 7.0, BUN 30 H, Creatinine 0.80 D, Estimated Creat Clear 35, Estimated GFR 69, Est GFR ( Amer) 83 D, Glucose 178 H, Calcium 7.7 L D, Magnesium 1.7, Total Bilirubin 0.9, AST 44 H, ALT 16 D, Alkaline Phosphatase 39, Total Protein 4.4 L D, Albumin 2.3 L D, Globulin 2.1, Albumin/Globulin Ratio 1.1 04/20/21 21:36: Blood Type O Positive, Antibody Screen Negative, Crossmatch ([facility]) See Detail 04/20/21 21:36: Blood Type Cancelled, Antibody Screen Cancelled 04/20/21 23:00: Lactate 3.3 H 04/20/21 23:00: Hgb 10.5 L, Hct 33.7 L 04/20/21 23:00: Troponin I 5.86 H 04/21/21 00:00: Blood Type Confirm O Positive 04/21/21 06:00: WBC 19.6 H, RBC
--- NOTE | 2021-04-21 08:00 | CA_ITS ---
APPROVED REPORT Bilateral Lower Extremity Venous Study for DVT. Material Specialist: TRA Indications assess for clots/bleeding, spec. Rt Fem/Inguinal Risk Factors Post OP Patient had bowel surgery and heart cath 04/20/21. Vein Imaging CFV (R): compressive, spontaneous, phasic, augmentation FEM (R): compressive, spontaneous, phasic, augmentation POP (R): compressive, spontaneous, phasic, augmentation PTV (R): Compressible Peroneals (R):Compressible GAS (R): Compressible CFV (L): compressive, spontaneous, phasic, augmentation FEM (L): compressive, spontaneous, phasic, augmentation POP (L): compressive, spontaneous, phasic, augmentation PTV (L): Compressible Peroneals (L):Compressible GAS (L): Compressible Findings No evidence of DVT or superficial thrombophlebitis in the veins scanned of the right lower extremity. No evidence of DVT or superficial thrombophlebitis in the veins scanned of the left lower extremity. Conclusion No evidence of DVT or superficial thrombophlebitis in the veins scanned of the right lower extremity. No evidence of DVT or superficial thrombophlebitis in the veins scanned of the left lower extremity. Electronically signed by : Kar Patrick MD 04/25/2021 17:56:33
--- NOTE | 2021-04-21 08:00 | CA_ITS ---
APPROVED REPORT EXAM: Comprehensive 2D, Doppler, and color-flow Echocardiogram Server Support Technician: Beronica Le RT(R) Ht: 5 ft 2 in Wt: 109lbs BSA: 1.48 BP: 99/64 mmHg Indications: AFIB with RVR, heart cath 04/20/21, CAD, post bowel surgery 04/20/21. 2D Dimensions LVOT 1.79 cm (M/F) 1.5-2.5 M-Mode Dimensions RVDd 2.68 cm (0.9-2.6) LA Diam 2.93 cm (1.9-4.0) LVDd 4.28 cm (3.5-5.7) Ao Diam 2.72 cm (2.0-3.7) LVDs 3.21 cm (3.5-5.7) IVSd 0.84 cm (0.6-1.1) PWd 0.70 cm (0.6-1.1) EF (Teich) 49.80% FS 25.00% EDV (Teich) 82.20 mL ESV (Teich) 41.30 mL Left Ventricle Left atrium is mildly enlarged, left ventricle is normal size, mild concentric left ventricular hypertrophy, visually estimated ejection fraction 55% with no regional wall motion abnormality, diastolic parameters are inconclusive. Right Ventricle Right atrium and right ventricle are normal size and contractility. Aortic Valve Aortic valve is minimally thickened and fibrosed, there is no aortic stenosis or aortic insufficiency. Mitral Valve Mitral valve leaflets are minimally thickened, there is mild mitral regurgitation. Tricuspid Valve Tricuspid grossly normal, there is mild tricuspid regurgitation, tricuspid regurgitation jet velocity is inadequate for calculation of the right ventricular systolic pressure. Pulmonic Valve Pulmonic valve is poorly visualized. Great Vessels Aortic root is normal size. Pericardium No significant pericardial effusion noted. Conclusion 1. Normal left ventricular size, mild concentric left ventricular hypertrophy, visually estimated ejection fraction 55% with no regional wall motion abnormality, diastolic parameters are inconclusive. 2. Mild mitral and tricuspid regurgitation. 3. No significant pericardial effusion noted. Electronically signed by : Royer Ivan, 04/21/2021 14:24:34
--- NOTE | 2021-04-21 08:44 | HMH.PNCARD ---
Subjective Date: 04/21/21 Time: 08:40 Principal diagnosis: Atrial fib, Hernia surgery Interval history: 81-year-old female admitted to [facility] with high-grade small bowel obstruction secondary to incarcerated right inguinal hernia in which the patient underwent surgery to correct yesterday. Patient was also noted to have a non-ST elevation myocardial infarction in which she also underwent left heart catheterization prior to surgery for the hernia. Left heart catheterization revealed severe single-vessel CAD involving the right coronary artery. Given the patient's moderate to high-grade small bowel obstruction secondary to an incarcerated right inguinal hernia the patient will be taken to surgery to have this corrected. During the left heart catheterization, patient was cardioverted due to being in atrial fibrillation with RVR. Patient did convert to sinus rhythm with occasional PAC. Patient has remained in sinus rhythm with an occasional PVC. During the evening patient's blood pressure had dropped. Dr. Emanuel was notified by nursing staff. Cardizem drip had been stopped. Patient was placed on a norepinephrine drip to help maintain blood pressure. When trying to wean patient off norepinephrine drip, patient's BP becomes unstable. Patient was given fluid boluses x3 for unstable BP (per PCP). while patient is on a norepinephrine drip, BP remained stable. Vital signs are stable this a.m. Patient denies chest pain, tightness or pressure. Patient denies shortness of breath. No swelling noted of the lower extremities. Left distal pulse noticed as weak. Bilateral extremities noted as warm and pink. Venous Doppler study was ordered per PCP. Amiodarone drip was stopped per PCP. Patient continues to be on antibiotics due to postop surgery. Patient was started on a statin after heart catheterization. Patient is currently taking aspirin daily. PCP has ordered CT scan on abdomen to determine peritonitis. Echocardiogram was performed yesterday. Waiting results of echocardiogram today to determine LV function and valve status. Pending on the results of the echocardiogram, medication and treatment therapy changes may be recommended. Due to patient's hyponatremia and unstable blood pressure, will increase IV fluids to 250 mL's per hour. Creatinine 1.30. Will defer postop care to surgery. Will defer low H&H to PCP. Repeat BMP in a.m. Please continue to monitor patient status. Please notify is cardiology of any changes in patient status. LHC:IMPRESSION Severe single-vessel coronary artery disease involving the right coronary artery as described above Branch coronary artery disease involving the diagonal artery and first and second obtuse marginal arteries Normal to hyperdynamic ventricular function Normal left ventricular end-diastolic pressure Successful cardioversion into normal sinus rhythm PLAN 1. Patient is an acceptable risk from a cardiac standpoint to proceed with surgery. She has been successfully cardioverted and currently on an amiodarone drip. Patient's myocardial infarction is a type II myocardial infarction which is secondary to demand ischemia due to her fixed coronary obstructions mostly in her branch vessels. The stent itself is not a problem with surgery and patient remains alone acceptable risk from a cardiac standpoint with surgery 2. Patient should be maintained on the amiodarone drip throughout the perioperative period and should she develop an additional paroxysmal of atrial fibrillation she can be Cardioverted if tachycardia develops. Should she develop atrial fibrillation which is rate controlled I would simply continue the amiodarone drip and continue medical management 3. IV fluids will be given due to the low LVEDP. Patient should have no problem with large amounts of fluid resuscitation 4. Postoperatively patient's coronary disease should be managed medically with rate controlling medicine such as d
[2021-04-21 09:17] LABS: Lymphocytes % 4 % (10-50); Monocytes % 11 % (2-9); Neutrophils % 85 % (42-76); Total Cells Counted 100
[2021-04-21 09:18] LABS: Platelet Estimate Normal; RBC Morphology Normal
--- NOTE | 2021-04-21 09:26 | P.CONPHA_ITS ---
[facility] Pharmacy VTE Monitoring - Patient Demographics Admission date: 04/21/21 Report Date: 04/21/21 Time: 09:26 Allergies/Adverse Reactions: Patient Allergies No Known Allergies Allergy (Verified 04/30/19 09:01) Height: 1.57 m Weight: 51.454 kg Patient Problems: Current Active Problems Rapid atrial fibrillation (Acute) New onset atrial fibrillation (Acute) Elevated troponin (Acute) Dehydration (Acute) Vomiting (Acute) Weakness (Acute) Abdominal pain (Acute) Non-ST elevation myocardial infarction (NSTEMI) (Acute) Incarcerated inguinal hernia (Acute) Small bowel obstruction (Acute) Septic shock (Acute) - VTE Risk Labs: VTE Related Lab Results Hgb 9.9 g/dL (12.2-16.2) L 04/21/21 06:00 Hct 30.7 % (37.0-47.0) L 04/21/21 06:00 Plt Count 286 K/mm3 (142-424) 04/21/21 06:00 BUN 36 mg/dl (7-17) H 04/21/21 06:00 Creatinine 1.30 mg/dl (0.52-1.04) H D 04/21/21 06:00 Estimated Creat Clear 27 mL/min (50-200) 04/21/21 06:00 - Prophylaxis VTE Prophylaxis Ordered?: Yes Types of VTE Prophylaxis: TEDS Knee High
--- NOTE | 2021-04-21 09:32 | PC.NURSE ---
Dr. Red has ordered Amio 200mg po BID. Dr. Emanuel agrees. Order faxed to pharmacy.
--- NOTE | 2021-04-21 10:09 | PC.NURSE ---
Dr. Red @ [facility] and ordered to increase MIVF to 250mL/hr. Order faxed to pharmacy.
--- NOTE | 2021-04-21 10:45 | HMH.PHAINT ---
clarified home medication list using list from home pharmacy, Dr. Vivar' office and pt interview
--- NOTE | 2021-04-21 10:59 | PC.NURSE ---
PT (Robb) got pt to sit on side of bed. Pt experienced orthostatic hypotension that resulted in syncope episode. Pt came to quickly. BP after episode is 102/50. NS infusing @ 250mL/hr and Levo gtt @ 13mcg/min.
--- NOTE | 2021-04-21 11:32 | HMH.PTEV ---
Physical Therapy Evaluation Rehab PT IP Evaluation Start: 04/21/21 06:40 Freq: ONCE Status: Active Protocol: Document 04/21/21 11:25 PHORNE (Rec: 04/21/21 11:31 PHORNE [id number]) Subjective/History History History 81 yowf adm to [facility] with incarcerated inguinal hernia now S/P hernia repair. She also had NSTEMI and underwent heart cath with cardioversion. She reports she is independent with all mobility at baseline, 3 steps to enter the home, and has a walker that she uses at night. Subjective Subjective Pt c/o pain in the abdomen around surgical site. Rehab PT IP Eval Objective Appearance Patient Behavior Appropriate Patient Orientation Person,Place,Time Difficulty following instructions none Speech Pattern Clear Ambulation Patient Able to Ambulate No Balance Ability to Arise Able, uses arms to help Sitting Balance Leans or slides in chair Dynamic Sitting Balance Ability Fair Transfers Bed Transfer Ability Moderate x 1 (50% assist) ROM All Extremities PT ROM Status WFL MMT All Extremities PT MMT WFL Abnormal MMT Grade grossly 3/5 Rehab PT IP prob,goals,plan Problems Date of Evaluation: 04/21/21 PT IP Problems Bed Mobility,Transfers,Gait Rehab Potential Rehab Potential Good Plan PT Intervention Plan Bed Mobility,Transfers,Gait, Self care,Therapeutic Exercise PT Plan Frequency BID Duration LOS Discharge Goals Bed Transfer Ability Minimal x 1 (25% assist) Sit to Stand Chair Transfer Ability Moderate x 1 (50% assist) Ambulation Assistive Device Rolling Walker Ambulation Distance (feet) 20 Discharge Plan PT Discharge Plan Pt suffered severe orthostasis when moved into sitting at EOB and was therefore returned to supine after a very short time. Her BP was 105/50 mmHg after return to supine. She quickly became more alert once in supine and positioned comfortably. Currently she is most appropriate for rehab placement, but could return
--- NOTE | 2021-04-21 12:30 | PC.NURSE ---
BP 119/59. Levo gtt decreased to 10mcg/min.
--- NOTE | 2021-04-21 13:00 | PC.NURSE ---
BP 140/52. Levo gtt decreased to 5mcg/min.
--- NOTE | 2021-04-21 13:23 | HMH.ANESII ---
[facility] Anesthesia Record Part II Discharge Time: 16:45 Destination: Second Floor PACU nurse assessment reviewed?: Yes Patient Condition:: Good Anesthesia Complications:: None Swallowing reflex intact?: Yes Cyanosis?: No Blood Pressure: 113/62 Pulse Rate: 75 Temperature: 98.2 F Mental Status: Alert & Oriented Pain level:: 0 Nausea and/or vomitting:: None Intake, IV Amount: 1,500
--- NOTE | 2021-04-21 13:30 | PC.NURSE ---
BP 146/53. Levo gtt turned OFF. Dr. Emanuel made aware.
[2021-04-21 14:17] LABS: Hematocrit 26.2 % (37.0-47.0)
[2021-04-21 14:24] LABS: Hemoglobin 8.3 g/dL (12.2-16.2)
[2021-04-21 14:30] LABS: Chloride 104 mmol/L (98-107); Sodium 130 mmol/L (136-145)
[2021-04-21 14:33] LABS: Blood Urea Nitrogen 37 mg/dl (7-17); Calcium 7.6 mg/dl (8.4-10.2); Carbon Dioxide 19 mmol/L (22.0-30.0); Creatinine Clearance Estimated 29 mL/min (50-200); Estimated Glomerular Filt Rate 43 ml/min (>60); GFR (African American) 52 ML/MIN (>60); Glucose 213 mg/dl (74-100)
[2021-04-21 14:41] LABS: Lactic Acid 2.4 mmol/L (0.7-2.1)
--- NOTE | 2021-04-21 14:52 | PC.NURSE ---
updated Dr. Emanuel that Hgb 8.3
--- NOTE | 2021-04-21 15:00 | PC.NURSE ---
Dr. Emanuel has ordered to transfuse 1 unit PRBC now. Called lab ([facility]) and informed her.
[2021-04-21 18:13] LABS: Reflex Lactic Add Lactic Reflex
--- NOTE | 2021-04-21 18:25 | PC.NURSE ---
Dr. Emanuel @ [facility] and ordered to decrease NS to 200mL/hr.
[2021-04-21 19:11] LABS: Basophils % 0.1 % (0.1-2.0); Mean Corpuscular HGB Conc 33.5 g/dL (31.8-35.4)
[2021-04-21 19:27] LABS: Eosinophils % 0.1 % (0.1-12.0); Hematocrit 27.9 % (37.0-47.0); Lymphocytes # 2.1 K/mm3 (0.7-4.5); Lymphocytes % 11.9 % (10-50); Mean Corpuscular Hemoglobin 27.2 pg (27.0-31.2); Mean Corpuscular Volume 80.9 fl (81-99); Mean Platelet Volume 8.9 fl (7.4-10.4); Monocytes # 1.2 K/mm3 (0.1-1.0); Monocytes % 6.9 % (1.7-9.3); Neutrophils # 14.5 K/mm3 (1.8-7.8); Platelet Count 256 K/mm3 (142-424); Red Blood Count 3.45 M/mm3 (4.20-5.40); Red Cell Distribution Width 16.3 % (11.5-17.5); White Blood Count 17.9 K/mm3 (4.8-10.8)
[2021-04-21 19:41] LABS: Hemoglobin 9.4 g/dL (12.2-16.2)
[2021-04-21 19:42] LABS: MANUAL DIFFERENTIAL MANUAL DIFFERENTIAL (MANUAL DIFF)
--- NOTE | 2021-04-21 20:11 | PC.NURSE ---
received call from dr. griffith for patient update report. informed levophed drip off, current blood pressure, urine output only 200ml for previous shift. and current 50 ml for this shift so far. as well as ivf and rate. no new orders received.
[2021-04-21 20:20] LABS: Lymphocytes % 8 % (10-50); Microcytosis 1+; Monocytes % 11 % (2-9); Neutrophils % 81 % (42-76); Platelet Estimate Normal; Total Cells Counted 100
[2021-04-21 20:21] LABS: Burr Cells 2+; Hypochromasia 1+
[2021-04-22] VITALS (33 sets, daily range): BP systolic 101–167; BP diastolic 54–100; PULSE 80–97; RESP 13–25; TEMP 36.5–37.7; O2SAT 91–96; BMI 21.0
--- NOTE | 2021-04-22 01:33 | INFXCTL.NOTE ---
1929 left upper extremity ultrasound guided iv discontinued due to swelling and bruising around site. area warm to touch. dr. porter at bedside for evening rounds and evaluated iv site, new order received to wrap, apply heat and elevate. order carried out.
--- NOTE | 2021-04-22 01:35 | PC.NURSE ---
reevaluated left upper extremity. forearm and hand more swollen than before, upper extremity edema decreased. wrap removed, area remains warm, small blisters present. arm remains elevated
[2021-04-22 05:22] LABS: Basophils % 0.1 % (0.1-2.0); Eosinophils % 0.1 % (0.1-12.0); Lymphocytes # 1.7 K/mm3 (0.7-4.5); Lymphocytes % 12.3 % (10-50); Mean Corpuscular Volume 81.3 fl (81-99); Mean Platelet Volume 8.6 fl (7.4-10.4); Monocytes # 0.8 K/mm3 (0.1-1.0); Monocytes % 6.2 % (1.7-9.3); Neutrophils # 10.9 K/mm3 (1.8-7.8); Neutrophils % 81.3 % (37.0-80.0); Platelet Count 158 K/mm3 (142-424); Red Blood Count 2.12 M/mm3 (4.20-5.40); Red Cell Distribution Width 16.5 % (11.5-17.5); White Blood Count 13.4 K/mm3 (4.8-10.8)
[2021-04-22 05:28] LABS: Alanine Aminotransferase 11 U/L (12-78); Alkaline Phosphatase 38 U/L (38-126); Anion Gap 4.7 mEq/L (5-15); Aspartate Amino Transferase 30 U/L (14-36); Bilirubin,Total 0.6 mg/dl (0.2-1.3); Blood Urea Nitrogen 33 mg/dl (7-17); Calcium 7.2 mg/dl (8.4-10.2); Carbon Dioxide 21 mmol/L (22.0-30.0); Chloride 112 mmol/L (98-107); Creatinine Clearance Estimated 34 mL/min (50-200); Estimated Glomerular Filt Rate 53 ml/min (>60); GFR (African American) 64 ML/MIN (>60); Globulin 2.1 g/dL (1.3-3.2); Glucose 128 mg/dl (74-100); Magnesium 1.9 mg/dl (1.6-2.3); Potassium 3.7 mmoL/L (3.5-5.1); Sodium 134 mmol/L (136-145); Total Protein,Serum 4.1 g/dl (6.3-8.2)
--- NOTE | 2021-04-22 05:30 | PC.NURSE ---
right ac iv leaking, attempted new iv x 1 unsuccessful.
[2021-04-22 06:13] LABS: Mean Corpuscular HGB Conc 41.8 g/dL (31.8-35.4)
--- NOTE | 2021-04-22 06:36 | HMH.GSPN ---
Subjective Narrative: Ms. Reynolds is an 81-year-old female status post exploratory laparotomy for incarcerated femoral hernia. Required small bowel resection. Today is postoperative day #2. Reports doing relatively well. No nausea. Mild dyspepsia. No function; no flatus or bowel movement. Tolerating sips. Currently off vasopressors. Progress Note: A&P (1) Septic shock Status: Acute (2) Non-ST elevation myocardial infarction (NSTEMI) Status: Acute (3) Elevated troponin Status: Acute (4) New onset atrial fibrillation Status: Acute (5) Rapid atrial fibrillation Status: Acute (6) Vomiting Status: Acute (7) Weakness Status: Acute (8) Incarcerated inguinal hernia Status: Acute (9) Small bowel obstruction Status: Acute (10) DONY (acute kidney injury) Status: Acute (11) Acute blood loss anemia Status: Acute Assessment and Plan for All Diagnoses:: Incarcerated femoral hernia. Status post exploratory laparotomy with small bowel resection. Overall, postoperative course unremarkable. IV fluids continue. Sips and clears by mouth. Awaiting return of bowel function. Exam Vital signs and Labs for Last 24 Hours: Temp Pulse Resp BP Pulse Ox 98.4 F 86 14 123/67 94 L 04/22/21 04:00 04/22/21 06:00 04/22/21 06:00 04/22/21 06:00 04/22/21 06:00 Laboratory Results - last 24 hr 04/20/21 20:14: ABG Lactate 2.6 H 04/20/21 21:36: Blood Type O Positive, Antibody Screen Negative, Crossmatch (AHG) See Detail 04/21/21 06:00: Total Counted 100, Neutrophils % (Manual) 85 H, Lymphocytes % (Manual) 4 L, Monocytes % (Manual) 11 H, Platelet Estimate Normal, RBC Morphology Normal 04/21/21 06:00: Sodium 132 L, Potassium 4.1, Chloride 107, Carbon Dioxide 18 L, Anion Gap 11.1, BUN 36 H, Creatinine 1.30 H D, Estimated Creat Clear 27, Estimated GFR 39 L, Est GFR ( Amer) 47 L D, Glucose 190 H, Calcium 7.7 L, Magnesium 1.7, Total Bilirubin 1.0, AST 68 H D, ALT 22 D, Alkaline Phosphatase 41, Total Protein 4.6 L, Albumin 2.4 L, Globulin 2.2, Albumin/Globulin Ratio 1.1 04/21/21 14:08: Hgb 8.3 L D, Hct 26.2 L 04/21/21 14:08: Sodium 130 L, Potassium 4.0, Chloride 104, Carbon Dioxide 19 L, Anion Gap 11.0, BUN 37 H, Creatinine 1.20 H, Estimated Creat Clear 29, Estimated GFR 43 L, Est GFR ( Amer) 52 L, Glucose 213 H, Calcium 7.6 L 04/21/21 14:08: Lactate 2.4 H 04/21/21 19:01: WBC 17.9 H, RBC 3.45 L, Hgb 9.4 L D, Hct 27.9 L, MCV 80.9 L, MCH 27.2, MCHC 33.5, RDW 16.3, Plt Count 256, MPV 8.9, Neut % (Auto) 81.0 H, Lymph % (Auto) 11.9, [place] % (Auto) 6.9, Eos % (Auto) 0.1, Baso % (Auto) 0.1, Neut # (Auto) 14.5 H, Lymph # (Auto) 2.1, [place] # (Auto) 1.2 H, Eos # (Auto) 0.0, Baso # (Auto) 0.0, Total Counted 100, Neutrophils % (Manual) 81 H, Lymphocytes % (Manual) 8 L, Monocytes % (Manual) 11 H, Platelet Estimate Normal, Hypochromasia 1+, Microcytosis 1+, [place] Cells 2+ 04/21/21 19:01: Lactate 2.0 04/22/21 05:00: Sodium 134 L, Potassium 3.7, Chloride 112 H, Carbon Dioxide 21 L, Anion Gap 4.7 L, BUN 33 H, Creatinine 1.00, Estimated Creat Clear 34, Estimated GFR 53 L, Est GFR ( Amer) 64 D, Glucose 128 H D, Calcium 7.2 L, Magnesium 1.9 D, Total Bilirubin 0.6, AST 30 D, ALT 11 L D, Alkaline Phosphatase 38, Total Protein 4.1 L, Albumin 2.0 L D, Globulin 2.1, Albumin/Globulin Ratio 1.0 L I & O for Last 24 hours: Intake & Output 04/19/21 04/20/21 04/21/21 04/22/21 11:59 11:59 11:59 11:59 Intake Total 5575.000 / 5575.000 6520 / 6520 Output Total 680 / 680 650 / 650 Balance 4895.000 / 4895.000 5870 / 5870 Weight 49.442 kg 51.454 kg 51.88 kg Microbiology Reports for the Last 24 Hours: Microbiology 04/20/21 10:45 Urine,Catheterized Urine Culture - Preliminary NO GROWTH AFTER 24 HOURS - *Routine Abdominal Exam Comments: Abdomen soft. Nondistended. Appropriately tender.
[2021-04-22 06:41] LABS: Hematocrit 21.9 % (37.0-47.0); Hemoglobin 7.3 g/dL (12.2-16.2)
--- NOTE | 2021-04-22 07:01 | PC.NURSE ---
dr. andrews notified of critical h/h values while rounding. new orders received to repeat cbc at 1400 and decrease ivf to 120ml/hr
--- NOTE | 2021-04-22 11:11 | PC.NURSE ---
Spoke w/ Dr. Emanuel via phone, states that if repeat CBC @ 1400, H/H <8 transfused 2 units of held PRBC's.
--- NOTE | 2021-04-22 11:21 | HMH.ACPN2 ---
Internal Medicine - PN: Subj *Date: 04/22/21 *Time: 11:21 Interval history: Patient overall looks better this morning. Had improved rest overnight with the use of IV pain medication. Still woke frequently but states she slept better. Slight improvement in abdominal discomfort this morning. Not passing any gas yet but tolerating sips and chips. Afebrile overnight. Stable on room air. Blood pressure much improved and within normal range this morning. Reviewed labs, hemoglobin significantly decreased, maintenance fluids have been reduced this morning. Kidney function showing slight improvement in electrolytes stable. Family at bedside Patient denies headache, chest pain, shortness of breath, vomiting, confusion Exam Vital signs and Labs for Last 24 Hours: Temp Pulse Resp BP Pulse Ox 97.7 F 85 17 124/69 94 L 04/22/21 08:00 04/22/21 10:00 04/22/21 10:00 04/22/21 10:00 04/22/21 10:00 Laboratory Results - last 24 hr 04/20/21 21:36: Blood Type O Positive, Antibody Screen Negative, Crossmatch (AHG) See Detail 04/21/21 14:08: Hgb 8.3 L D, Hct 26.2 L 04/21/21 14:08: Sodium 130 L, Potassium 4.0, Chloride 104, Carbon Dioxide 19 L, Anion Gap 11.0, BUN 37 H, Creatinine 1.20 H, Estimated Creat Clear 29, Estimated GFR 43 L, Est GFR ( Amer) 52 L, Glucose 213 H, Calcium 7.6 L 04/21/21 14:08: Lactate 2.4 H 04/21/21 19:01: WBC 17.9 H, RBC 3.45 L, Hgb 9.4 L D, Hct 27.9 L, MCV 80.9 L, MCH 27.2, MCHC 33.5, RDW 16.3, Plt Count 256, MPV 8.9, Neut % (Auto) 81.0 H, Lymph % (Auto) 11.9, [place] % (Auto) 6.9, Eos % (Auto) 0.1, Baso % (Auto) 0.1, Neut # (Auto) 14.5 H, Lymph # (Auto) 2.1, [place] # (Auto) 1.2 H, Eos # (Auto) 0.0, Baso # (Auto) 0.0, Total Counted 100, Neutrophils % (Manual) 81 H, Lymphocytes % (Manual) 8 L, Monocytes % (Manual) 11 H, Platelet Estimate Normal, Hypochromasia 1+, Microcytosis 1+, [place] Cells 2+ 04/21/21 19:01: Lactate 2.0 04/22/21 05:00: WBC 13.4 H D, RBC 2.12 L D, Hgb 7.3 L* D, Hct 21.9 L*, MCV 81.3, MCH 34.0 H, MCHC 41.8 H*, RDW 16.5, Plt Count 158 D, MPV 8.6, Neut % (Auto) 81.3 H, Lymph % (Auto) 12.3, [place] % (Auto) 6.2, Eos % (Auto) 0.1, Baso % (Auto) 0.1, Neut # (Auto) 10.9 H, Lymph # (Auto) 1.7, [place] # (Auto) 0.8, Eos # (Auto) 0.0, Baso # (Auto) 0.0 04/22/21 05:00: Sodium 134 L, Potassium 3.7, Chloride 112 H, Carbon Dioxide 21 L, Anion Gap 4.7 L, BUN 33 H, Creatinine 1.00, Estimated Creat Clear 34, Estimated GFR 53 L, Est GFR ( Amer) 64 D, Glucose 128 H D, Calcium 7.2 L, Magnesium 1.9 D, Total Bilirubin 0.6, AST 30 D, ALT 11 L D, Alkaline Phosphatase 38, Total Protein 4.1 L, Albumin 2.0 L D, Globulin 2.1, Albumin/Globulin Ratio 1.0 L I & O for Last 24 hours: Intake & Output 04/19/21 04/20/21 04/21/21 04/22/21 23:59 23:59 23:59 23:59 Intake Total 1540.931 / 3590.931 8154.069 / 8154.069 2400 / 2400 Output Total 475 / 550 655 / 655 200 / 200 Balance 1065.931 / 3040.931 7499.069 / 7499.069 2200 / 2200 Weight 51.454 kg 51 kg 51.88 kg Microbiology Reports for the Last 24 Hours: Microbiology 04/20/21 10:45 Urine,Catheterized Urine Culture - Final NO GROWTH AFTER 48 HOURS 04/20/21 10:35 Blood Blood Culture - Preliminary NO GROWTH AFTER 48 HOURS 04/20/21 10:35 Blood Blood Culture - Preliminary NO GROWTH AFTER 48 HOURS Narrative: - Constitutional NAD distress, average body habitus, cooperative - *Routine HEENT Exam Head: Present: normocephalic Eye: Present: EOMI, PERRL ENT: Present: mucous membranes moist - *Routine Neck Exam Present: supple. Absent: lymphadenopathy - *Routine Respiratory Exam Present: CTA bilaterally - *Routine Cardiovascular Exam Present: RRR. Absent: murmur - *Routine Abdominal Exam Present: soft, tenderness. Absent: Arzate Calix's sign, [place]'s sign Comments: Hypoactive bowel sounds though interval improvement from yesterday - diffuse abdominal pain, d
[2021-04-22 14:24] LABS: Basophils % 0.1 % (0.1-2.0); Red Blood Count 2.66 M/mm3 (4.20-5.40)
[2021-04-22 14:28] LABS: Eosinophils % 0.2 % (0.1-12.0); Lymphocytes # 1.3 K/mm3 (0.7-4.5); Lymphocytes % 8.5 % (10-50); Mean Corpuscular HGB Conc 32.9 g/dL (31.8-35.4); Mean Corpuscular Hemoglobin 27.3 pg (27.0-31.2); Mean Corpuscular Volume 82.9 fl (81-99); Mean Platelet Volume 8.2 fl (7.4-10.4); Monocytes % 6.4 % (1.7-9.3); Neutrophils % 84.8 % (37.0-80.0); Platelet Count 215 K/mm3 (142-424); Red Cell Distribution Width 16.8 % (11.5-17.5); White Blood Count 15.3 K/mm3 (4.8-10.8)
[2021-04-22 14:31] LABS: Hemoglobin 7.2 g/dL (12.2-16.2)
[2021-04-22 14:32] LABS: MANUAL DIFFERENTIAL MANUAL DIFFERENTIAL (MANUAL DIFF)
[2021-04-22 14:55] LABS: Lymphocytes % 15 % (10-50); Monocytes % 7 % (2-9); Neutrophils % 76 % (42-76); Platelet Estimate Normal; RBC Morphology Normal; Total Cells Counted 100
--- NOTE | 2021-04-22 15:37 | PC.NURSE ---
Pt currently up to chair. Was assisted by staff x1, tolerated well w/ minimal pain reported. Pt has been medicated once this shift w/ PO pain medication. She remains on room air. Lungs CTA on this afternoon assessment. HR regular. Abdomen soft, tender w/ hypoactive BS in all quads. Denies passing flatus, but reports belching and frequent hiccups. Medicated this AM for nausea w/ zofran, no complaints since that time. (R) groin surg site w/ dry serosang drainage present. (L) groin site c/d/i, soft to touch. BLE w/o edema. Swain cath was removed this afternoon, pt has yet to void @ this time. BP has remained stable. She is currently receiving first unit of PRBC's. Remains afebrile. #20 PIV was started in [place] using US guidance, only one stick was made, IV flushes and blood return noted. No needs @ this time. Call devora w/in reach.
--- NOTE | 2021-04-22 22:00 | PC.NURSE ---
193 2nd unit of blood started, completed at 2149. no transfusion reactions noted.
--- NOTE | 2021-04-22 22:02 | PC.NURSE ---
2044 patient vomitied green emesis, treated with rodney noland currently resting
[2021-04-23] VITALS (10 sets, daily range): BP systolic 134–154; BP diastolic 68–85; PULSE 70–84; RESP 14–20; TEMP 36.6–37.2; O2SAT 90–97; BMI 21.0
--- NOTE | 2021-04-23 02:12 | PC.NURSE ---
patient has had difficult night, increased pain in abdomen, nausea and vomiting. have been administering iv pain medications due to nausea and vomiting. patient belching and has frequent hiccups. resting comfortably at this time.
[2021-04-23 06:35] LABS: Basophils % 0.2 % (0.1-2.0); Hematocrit 28.7 % (37.0-47.0); Lymphocytes # 0.6 K/mm3 (0.7-4.5); Lymphocytes % 8.1 % (10-50); Mean Corpuscular HGB Conc 33.7 g/dL (31.8-35.4); Mean Corpuscular Hemoglobin 28.5 pg (27.0-31.2); Mean Corpuscular Volume 84.6 fl (81-99); Mean Platelet Volume 8.4 fl (7.4-10.4); Monocytes # 0.6 K/mm3 (0.1-1.0); Monocytes % 7.1 % (1.7-9.3); Neutrophils # 6.6 K/mm3 (1.8-7.8); Neutrophils % 84.5 % (37.0-80.0); Platelet Count 164 K/mm3 (142-424); Red Blood Count 3.39 M/mm3 (4.20-5.40); White Blood Count 7.8 K/mm3 (4.8-10.8)
[2021-04-23 06:39] LABS: Hemoglobin 9.7 g/dL (12.2-16.2)
[2021-04-23 06:41] LABS: Alanine Aminotransferase 10 U/L (12-78); Albumin Level 2.2 g/dl (3.5-5.0); Alkaline Phosphatase 42 U/L (38-126); Anion Gap 3.6 mEq/L (5-15); Aspartate Amino Transferase 26 U/L (14-36); Bilirubin,Total 0.7 mg/dl (0.2-1.3); Blood Urea Nitrogen 22 mg/dl (7-17); Calcium 7.3 mg/dl (8.4-10.2); Carbon Dioxide 21 mmol/L (22.0-30.0); Chloride 114 mmol/L (98-107); Creatinine Clearance Estimated 35 mL/min (50-200); Estimated Glomerular Filt Rate 80 ml/min (>60); GFR (African American) 97 ML/MIN (>60); Globulin 2.3 g/dL (1.3-3.2); Glucose 119 mg/dl (74-100); Magnesium 2.1 mg/dl (1.6-2.3); Potassium 3.6 mmoL/L (3.5-5.1); Sodium 135 mmol/L (136-145); Total Protein,Serum 4.5 g/dl (6.3-8.2)
[2021-04-23 08:03] LABS: Occult Blood,Stool Positive (Negative)
--- NOTE | 2021-04-23 08:26 | HMH.ACPN2 ---
Internal Medicine - PN: Subj *Date: 04/23/21 *Time: 10:41 Interval history: Ms. Reynolds had an eventful night with some nausea and a bowel movement that appeared to be old dark blood. Finished her 2 units of blood transfusion with good response. Labs reviewed this morning with hemoglobin in the high 9 range. Kidney function better today. Afebrile. Required oxygen briefly overnight but stable on room air this morning. Seen by surgery this morning, family at bedside. Exam Vital signs and Labs for Last 24 Hours: Temp Pulse Resp BP Pulse Ox 98.3 F 80 16 154/80 H 95 04/23/21 04:00 04/23/21 06:00 04/23/21 06:00 04/23/21 06:00 04/23/21 06:00 Laboratory Results - last 24 hr 04/20/21 21:36: Blood Type O Positive, Antibody Screen Negative, Crossmatch (AHG) See Detail 04/22/21 14:10: WBC 15.3 H, RBC 2.66 L D, Hgb 7.2 L*, Hct 22.0 L*, MCV 82.9, MCH 27.3, MCHC 32.9, RDW 16.8, Plt Count 215 D, MPV 8.2, Neut % (Auto) 84.8 H, Lymph % (Auto) 8.5 L, [place] % (Auto) 6.4, Eos % (Auto) 0.2, Baso % (Auto) 0.1, Neut # (Auto) 13.0 H, Lymph # (Auto) 1.3, [place] # (Auto) 1.0, Eos # (Auto) 0.0, Baso # (Auto) 0.0, Total Counted 100, Neutrophils % (Manual) 76, Band Neutrophils % 2.0, Lymphocytes % (Manual) 15, Monocytes % (Manual) 7, Platelet Estimate Normal, RBC Morphology Normal 04/23/21 06:09: Sodium 135 L, Potassium 3.6, Chloride 114 H, Carbon Dioxide 21 L, Anion Gap 3.6 L, BUN 22 H D, Creatinine 0.70 D, Estimated Creat Clear 35, Estimated GFR 80, Est GFR ( Amer) 97 D, Glucose 119 H, Calcium 7.3 L, Magnesium 2.1 D, Total Bilirubin 0.7, AST 26, ALT 10 L, Alkaline Phosphatase 42, Total Protein 4.5 L, Albumin 2.2 L, Globulin 2.3, Albumin/Globulin Ratio 1.0 L 04/23/21 06:09: WBC 7.8 D, RBC 3.39 L D, Hgb 9.7 L D, Hct 28.7 L, MCV 84.6, MCH 28.5, MCHC 33.7, RDW 17.0, Plt Count 164, MPV 8.4, Neut % (Auto) 84.5 H, Lymph % (Auto) 8.1 L, [place] % (Auto) 7.1, Eos % (Auto) 0.0 L, Baso % (Auto) 0.2, Neut # (Auto) 6.6, Lymph # (Auto) 0.6 L, [place] # (Auto) 0.6, Eos # (Auto) 0.0, Baso # (Auto) 0.0 04/23/21 07:45: Stool Occult Blood Positive A I & O for Last 24 hours: Intake & Output 04/20/21 04/21/21 04/22/21 04/23/21 23:59 23:59 23:59 23:59 Intake Total 1540.931 / 3590.931 8154.069 / 8154.069 3615 / 3615 1420 / 1420 Output Total 475 / 550 655 / 655 875 / 875 250 / 250 Balance 1065.931 / 3040.931 7499.069 / 7499.069 2740 / 2740 1170 / 1170 Weight 51.454 kg 51 kg 51.88 kg 51.908 kg Microbiology Reports for the Last 24 Hours: Microbiology 04/20/21 10:45 Urine,Catheterized Urine Culture - Final NO GROWTH AFTER 48 HOURS 04/20/21 10:35 Blood Blood Culture - Preliminary NO GROWTH AFTER 48 HOURS 04/20/21 10:35 Blood Blood Culture - Preliminary NO GROWTH AFTER 48 HOURS Narrative: - Constitutional NAD distress, average body habitus, cooperative - *Routine HEENT Exam Head: Present: normocephalic Eye: Present: EOMI, PERRL ENT: Present: mucous membranes moist - *Routine Neck Exam Present: supple. Absent: lymphadenopathy - *Routine Respiratory Exam Present: CTA bilaterally - *Routine Cardiovascular Exam Present: RRR. Absent: murmur - *Routine Abdominal Exam Present: soft, tenderness. Absent: Arzate Calix's sign, [place]'s sign Comments: Improved activity of bowels, appropriate abdominal pain. decreased peritoneal signs. rebound, no guarding; surgical site from left inguinal insertion of heart catheter and right lower abdominal incision from hernia surgery with minimal ecchymosis - *Routine Extremities Exam Absent: cyanosis, clubbing, edema Comments: Feet cool with varicose veins bilaterally however DP and PT pulses palpable bilaterally; stable ecchymosis in bilateral inguinal regions - *Routine Skin Exam Present: warm. Absent: rash - *Routine Neurological Exam Present: alert, oriented X3 Assessment and Plan (1) Septic esthela
--- NOTE | 2021-04-23 08:30 | PC.NURSE ---
Pt up to BSC this AM w/ assistance x1 of staff. PT voided w/o difficulty, as well as having a BM that was watery and drk red in color. made aware this AM when he called for update on pt. Will decrease lovenox to once a day from BID. No further orders.
--- NOTE | 2021-04-23 10:12 | HMH.GSPN ---
Subjective Narrative: Ms. Reynolds is an 81-year-old female status post exploratory laparotomy through a limited right lower quadrant incision for incarcerated femoral hernia requiring small bowel resection. Small bowel movement noted this morning; melanotic. Pain controlled. Mild nausea. One episode of emesis. No other complaints. Overall, appears to be doing relatively well. Progress Note: A&P (1) Septic shock Status: Acute (2) Non-ST elevation myocardial infarction (NSTEMI) Status: Acute (3) Elevated troponin Status: Acute (4) New onset atrial fibrillation Status: Acute (5) Rapid atrial fibrillation Status: Acute (6) Vomiting Status: Acute (7) Weakness Status: Acute (8) Incarcerated inguinal hernia Status: Acute (9) Small bowel obstruction Status: Acute (10) DONY (acute kidney injury) Status: Acute (11) Acute blood loss anemia Status: Acute Assessment and Plan for All Diagnoses:: Incarcerated femoral hernia. Requiring exploratory laparotomy with small bowel resection. Melena not unexpected. Abdomen soft. Begin to advance diet today. Continue supportive care. Exam Vital signs and Labs for Last 24 Hours: Temp Pulse Resp BP Pulse Ox 98.3 F 80 16 154/80 H 95 04/23/21 04:00 04/23/21 06:00 04/23/21 06:00 04/23/21 06:00 04/23/21 06:00 Laboratory Results - last 24 hr 04/20/21 21:36: Blood Type O Positive, Antibody Screen Negative, Crossmatch (AHG) See Detail 04/22/21 14:10: WBC 15.3 H, RBC 2.66 L D, Hgb 7.2 L*, Hct 22.0 L*, MCV 82.9, MCH 27.3, MCHC 32.9, RDW 16.8, Plt Count 215 D, MPV 8.2, Neut % (Auto) 84.8 H, Lymph % (Auto) 8.5 L, [place] % (Auto) 6.4, Eos % (Auto) 0.2, Baso % (Auto) 0.1, Neut # (Auto) 13.0 H, Lymph # (Auto) 1.3, [place] # (Auto) 1.0, Eos # (Auto) 0.0, Baso # (Auto) 0.0, Total Counted 100, Neutrophils % (Manual) 76, Band Neutrophils % 2.0, Lymphocytes % (Manual) 15, Monocytes % (Manual) 7, Platelet Estimate Normal, RBC Morphology Normal 04/23/21 06:09: Sodium 135 L, Potassium 3.6, Chloride 114 H, Carbon Dioxide 21 L, Anion Gap 3.6 L, BUN 22 H D, Creatinine 0.70 D, Estimated Creat Clear 35, Estimated GFR 80, Est GFR ( Amer) 97 D, Glucose 119 H, Calcium 7.3 L, Magnesium 2.1 D, Total Bilirubin 0.7, AST 26, ALT 10 L, Alkaline Phosphatase 42, Total Protein 4.5 L, Albumin 2.2 L, Globulin 2.3, Albumin/Globulin Ratio 1.0 L 04/23/21 06:09: WBC 7.8 D, RBC 3.39 L D, Hgb 9.7 L D, Hct 28.7 L, MCV 84.6, MCH 28.5, MCHC 33.7, RDW 17.0, Plt Count 164, MPV 8.4, Neut % (Auto) 84.5 H, Lymph % (Auto) 8.1 L, [place] % (Auto) 7.1, Eos % (Auto) 0.0 L, Baso % (Auto) 0.2, Neut # (Auto) 6.6, Lymph # (Auto) 0.6 L, [place] # (Auto) 0.6, Eos # (Auto) 0.0, Baso # (Auto) 0.0 04/23/21 07:45: Stool Occult Blood Positive A I & O for Last 24 hours: Intake & Output 04/20/21 04/21/21 04/22/21 04/23/21 11:59 11:59 11:59 11:59 Intake Total 5575.000 / 5575.000 6520 / 6520 2635 / 2635 Output Total 680 / 680 650 / 650 925 / 925 Balance 4895.000 / 4895.000 5870 / 5870 1710 / 1710 Weight 49.442 kg 51.454 kg 51.88 kg 51.908 kg Microbiology Reports for the Last 24 Hours: Microbiology 04/20/21 10:45 Urine,Catheterized Urine Culture - Final NO GROWTH AFTER 48 HOURS 04/20/21 10:35 Blood Blood Culture - Preliminary NO GROWTH AFTER 48 HOURS 04/20/21 10:35 Blood Blood Culture - Preliminary NO GROWTH AFTER 48 HOURS - *Routine Abdominal Exam Comments: Abdomen soft. Nontender. Nondistended. Right lower quadrant incision clean. Intact. No evidence of surgical site infection.
--- NOTE | 2021-04-23 11:13 | HMH.ACPN ---
Internal Medicine - PN: Subj *Date: 04/23/21 *Time: 11:13 Exam Vital signs and Labs for Last 24 Hours: Temp Pulse Resp BP Pulse Ox 98.3 F 78 16 137/73 91 L 04/23/21 04:00 04/23/21 10:00 04/23/21 10:00 04/23/21 10:00 04/23/21 10:00 Laboratory Results - last 24 hr 04/20/21 21:36: Blood Type O Positive, Antibody Screen Negative, Crossmatch (AHG) See Detail 04/22/21 14:10: WBC 15.3 H, RBC 2.66 L D, Hgb 7.2 L*, Hct 22.0 L*, MCV 82.9, MCH 27.3, MCHC 32.9, RDW 16.8, Plt Count 215 D, MPV 8.2, Neut % (Auto) 84.8 H, Lymph % (Auto) 8.5 L, [place] % (Auto) 6.4, Eos % (Auto) 0.2, Baso % (Auto) 0.1, Neut # (Auto) 13.0 H, Lymph # (Auto) 1.3, [place] # (Auto) 1.0, Eos # (Auto) 0.0, Baso # (Auto) 0.0, Total Counted 100, Neutrophils % (Manual) 76, Band Neutrophils % 2.0, Lymphocytes % (Manual) 15, Monocytes % (Manual) 7, Platelet Estimate Normal, RBC Morphology Normal 04/23/21 06:09: Sodium 135 L, Potassium 3.6, Chloride 114 H, Carbon Dioxide 21 L, Anion Gap 3.6 L, BUN 22 H D, Creatinine 0.70 D, Estimated Creat Clear 35, Estimated GFR 80, Est GFR ( Amer) 97 D, Glucose 119 H, Calcium 7.3 L, Magnesium 2.1 D, Total Bilirubin 0.7, AST 26, ALT 10 L, Alkaline Phosphatase 42, Total Protein 4.5 L, Albumin 2.2 L, Globulin 2.3, Albumin/Globulin Ratio 1.0 L 04/23/21 06:09: WBC 7.8 D, RBC 3.39 L D, Hgb 9.7 L D, Hct 28.7 L, MCV 84.6, MCH 28.5, MCHC 33.7, RDW 17.0, Plt Count 164, MPV 8.4, Neut % (Auto) 84.5 H, Lymph % (Auto) 8.1 L, [place] % (Auto) 7.1, Eos % (Auto) 0.0 L, Baso % (Auto) 0.2, Neut # (Auto) 6.6, Lymph # (Auto) 0.6 L, [place] # (Auto) 0.6, Eos # (Auto) 0.0, Baso # (Auto) 0.0 04/23/21 07:45: Stool Occult Blood Positive A I & O for Last 24 hours: Intake & Output 04/20/21 04/21/21 04/22/21 04/23/21 23:59 23:59 23:59 23:59 Intake Total 1540.931 / 3590.931 8154.069 / 8154.069 3615 / 3615 1420 / 1420 Output Total 475 / 550 655 / 655 875 / 875 250 / 250 Balance 1065.931 / 3040.931 7499.069 / 7499.069 2740 / 2740 1170 / 1170 Weight 51.454 kg 51 kg 51.88 kg 51.908 kg Microbiology Reports for the Last 24 Hours: Microbiology 04/20/21 10:45 Urine,Catheterized Urine Culture - Final NO GROWTH AFTER 48 HOURS 04/20/21 10:35 Blood Blood Culture - Preliminary NO GROWTH AFTER 48 HOURS 04/20/21 10:35 Blood Blood Culture - Preliminary NO GROWTH AFTER 48 HOURS Assessment and Plan (1) Septic shock Status: Acute Category: Medical Code(s): A41.9 - Sepsis, unspecified organism; R65.21 - Severe sepsis with septic shock (2) Non-ST elevation myocardial infarction (NSTEMI) Status: Acute Category: Medical Code(s): I21.4 - Non-ST elevation (NSTEMI) myocardial infarction (3) Elevated troponin Status: Acute Category: Medical Code(s): R77.8 - Other specified abnormalities of plasma proteins (4) New onset atrial fibrillation Status: Acute Category: Medical Code(s): I48.91 - Unspecified atrial fibrillation (5) Rapid atrial fibrillation Status: Acute Category: Medical Code(s): I48.91 - Unspecified atrial fibrillation (6) Vomiting Status: Acute Qualifiers: Vomiting type: unspecified Vomiting Intractability: intractable Nausea presence: with nausea Qualified Code(s): R11.2 - Nausea with vomiting, unspecified Category: Medical Code(s): R11.10 - Vomiting, unspecified (7) Weakness Status: Acute Category: Medical Code(s): R53.1 - Weakness (8) Incarcerated inguinal hernia Status: Acute Category: Medical Code(s): K40.30 - Unilateral inguinal hernia, with obstruction, without gangrene, not specified as recurrent (9) Small bowel obstruction Status: Acute Category: Medical Code(s): K56.609 - Unspecified intestinal obstruction, unspecified as to partial versus complete obstruction (10) DONY (acute kidney injury) Status: Acute Category: Medical Code(s): N17.9 - Acute kidney failure, unsp
--- NOTE | 2021-04-23 15:56 | PC.NURSE ---
No acute changes. Pt has been up to chair for a few hours today, tolerating well. Worked w/ PT this AM. Requires assistance x1 w/ transfers. Has had two drk red stools this shift, most recent stool is less red in color and appears more green/brown. Has not required any pain meds or anti-emetics. Tolerating clear liquid diet w/o incident. Family have been @ bedside entire shift. She is currently resting, no needs voiced. Call devora w/in reach.
[2021-04-24] VITALS (8 sets, daily range): BP systolic 144–174; BP diastolic 64–89; PULSE 65–92; RESP 15–18; TEMP 36.5–37.1; O2SAT 77–95; BMI 21.4
--- NOTE | 2021-04-24 04:03 | PC.NURSE ---
patient has had uneventful shift, rested well. bowel sounds active x 4 quadrants, bm noted. nurse monitoring has shown sr. voiding clear,yellow urine per bedside commode. 1 person assist
[2021-04-24 06:05] LABS: Basophils % 0.2 % (0.1-2.0); Eosinophils # 0.1 K/mm3 (0.0-0.4); Eosinophils % 0.8 % (0.1-12.0); Hematocrit 28.4 % (37.0-47.0); Hemoglobin 9.6 g/dL (12.2-16.2); Lymphocytes % 11.8 % (10-50); Mean Corpuscular HGB Conc 33.9 g/dL (31.8-35.4); Mean Corpuscular Hemoglobin 28.7 pg (27.0-31.2); Mean Corpuscular Volume 84.8 fl (81-99); Mean Platelet Volume 8.6 fl (7.4-10.4); Monocytes # 0.8 K/mm3 (0.1-1.0); Monocytes % 8.7 % (1.7-9.3); Neutrophils # 6.9 K/mm3 (1.8-7.8); Neutrophils % 78.5 % (37.0-80.0); Platelet Count 207 K/mm3 (142-424); Red Blood Count 3.35 M/mm3 (4.20-5.40); White Blood Count 8.7 K/mm3 (4.8-10.8)
[2021-04-24 06:14] LABS: Anion Gap 5.6 mEq/L (5-15); Blood Urea Nitrogen 18 mg/dl (7-17); Calcium 7.5 mg/dl (8.4-10.2); Carbon Dioxide 19 mmol/L (22.0-30.0); Chloride 117 mmol/L (98-107); Creatinine Clearance Estimated 36 mL/min (50-200); Estimated Glomerular Filt Rate 95 ml/min (>60); GFR (African American) 116 ML/MIN (>60); Glucose 101 mg/dl (74-100); Potassium 3.6 mmoL/L (3.5-5.1); Sodium 138 mmol/L (136-145)
--- NOTE | 2021-04-24 07:19 | HMH.ACPN2 ---
Internal Medicine - PN: Subj *Date: 04/24/21 *Time: 09:02 Interval history: Remains stable overnight. Able to wean off Supplemental O2. No active bleeding. Labs stable this morning. Blood levels stabilized. Tolerated clear liquid with Dinner and Breakfast. Has had 2 more bowel movements in the past 24hrs. passing gas. Afebrile and stable blood pressure. No complaint of SOA, CP, BAILEY, Vomiting. minimal nausea. ON bedside commode upon entering room this morning. Interval improvement inappearance. Exam Vital signs and Labs for Last 24 Hours: Temp Pulse Resp BP Pulse Ox 98.3 F 72 15 144/64 H 92 L 04/24/21 04:00 04/24/21 04:00 04/24/21 04:00 04/24/21 04:00 04/24/21 04:00 Laboratory Results - last 24 hr 04/23/21 07:45: Stool Occult Blood Positive A 04/24/21 05:49: WBC 8.7, RBC 3.35 L, Hgb 9.6 L, Hct 28.4 L, MCV 84.8, MCH 28.7, MCHC 33.9, RDW 18.0 H, Plt Count 207 D, MPV 8.6, Neut % (Auto) 78.5, Lymph % (Auto) 11.8, [place] % (Auto) 8.7, Eos % (Auto) 0.8, Baso % (Auto) 0.2, Neut # (Auto) 6.9, Lymph # (Auto) 1.0, [place] # (Auto) 0.8, Eos # (Auto) 0.1, Baso # (Auto) 0.0 04/24/21 05:49: Sodium 138, Potassium 3.6, Chloride 117 H, Carbon Dioxide 19 L, Anion Gap 5.6, BUN 18 H, Creatinine 0.60, Estimated Creat Clear 36, Estimated GFR 95, Est GFR ( Amer) 116, Glucose 101 H, Calcium 7.5 L, Magnesium 2.0 I & O for Last 24 hours: Intake & Output 04/21/21 04/22/21 04/23/21 04/24/21 23:59 23:59 23:59 23:59 Intake Total 8154.069 / 8154.069 3615 / 3615 3124 / 3124 1562 / 1562 Output Total 655 / 655 875 / 875 825 / 825 Balance 7499.069 / 7499.069 2740 / 2740 2299 / 2299 1562 / 1562 Weight 51 kg 51.88 kg 51.908 kg 52.9 kg Narrative: - Constitutional NAD distress, average body habitus, cooperative - *Routine HEENT Exam Head: Present: normocephalic Eye: Present: EOMI, PERRL ENT: Present: mucous membranes moist - *Routine Neck Exam Present: supple. Absent: lymphadenopathy - *Routine Respiratory Exam Present: CTA bilaterally - *Routine Cardiovascular Exam Present: RRR. Absent: murmur - *Routine Abdominal Exam Present: soft, improved mild tenderness of abdomen. Active bowel sounds. Surgical incisions clean dry and intact. - *Routine Extremities Exam Absent: cyanosis, clubbing, edema - *Routine Skin Exam Present: warm. Absent: rash - *Routine Neurological Exam Present: alert, oriented X3 Assessment and Plan (1) Septic shock Status: Acute Category: Medical Code(s): A41.9 - Sepsis, unspecified organism; R65.21 - Severe sepsis with septic shock (2) Non-ST elevation myocardial infarction (NSTEMI) Status: Acute Category: Medical Code(s): I21.4 - Non-ST elevation (NSTEMI) myocardial infarction (3) Elevated troponin Status: Acute Category: Medical Code(s): R77.8 - Other specified abnormalities of plasma proteins (4) New onset atrial fibrillation Status: Acute Category: Medical Code(s): I48.91 - Unspecified atrial fibrillation (5) Rapid atrial fibrillation Status: Acute Category: Medical Code(s): I48.91 - Unspecified atrial fibrillation (6) Vomiting Status: Acute Qualifiers: Vomiting type: unspecified Vomiting Intractability: intractable Nausea presence: with nausea Qualified Code(s): R11.2 - Nausea with vomiting, unspecified Category: Medical Code(s): R11.10 - Vomiting, unspecified (7) Weakness Status: Acute Category: Medical Code(s): R53.1 - Weakness (8) Incarcerated inguinal hernia Status: Acute Category: Medical Code(s): K40.30 - Unilateral inguinal hernia, with obstruction, without gangrene, not specified as recurrent (9) Small bowel obstruction Status: Acute Category: Medical Code(s): K56.609 - Unspecified intestinal obstruction, unspecified as to partial versus complete obstruction (10) DONY (acute kidney injury) Status: Acute Category: Medical Code(s): N17.9 - Acute kidney failure, unspecified (
--- NOTE | 2021-04-24 07:30 | XR_ITS ---
PROCEDURE INFORMATION: Exam: XR Chest Exam date and time: 04/24/2021 7:30 AM Age: 81 years old Clinical indication: Shortness of breath; Patient HX: SOA; Additional info: Increased o2 requirement TECHNIQUE: Imaging protocol: XR of the chest. Views: 1 view. COMPARISON: CR XR CHEST PORTABLE 04/20/2021 10:14 AM FINDINGS: Tubes, catheters and devices: Overlying EKG wires Lungs: Opacities in both bases may represent atelectasis or pneumonia.. Pleural spaces: Blunting in left costophrenic angle may represent small pleural effusion Heart/Mediastinum: Unremarkable. No cardiomegaly. Bones/joints: Unremarkable. IMPRESSION: Opacities in both bases may represent atelectasis or pneumonia..
--- NOTE | 2021-04-24 10:31 | HMH.GSPN ---
Subjective Narrative: Ms. Reynolds is an 81-year-old female status post exploratory laparotomy for incarcerated femoral hernia. Requiring small bowel resection. Today, doing well. Additional bowel function noted. 2 bowel movements over the last p.m. Sitting upright to a chair at the bedside. No nausea or emesis. Overall, doing well. Tolerating diet. Progress Note: A&P (1) Septic shock Status: Acute (2) Non-ST elevation myocardial infarction (NSTEMI) Status: Acute (3) Elevated troponin Status: Acute (4) New onset atrial fibrillation Status: Acute (5) Rapid atrial fibrillation Status: Acute (6) Vomiting Status: Acute (7) Weakness Status: Acute (8) Incarcerated inguinal hernia Status: Acute (9) Small bowel obstruction Status: Acute (10) DONY (acute kidney injury) Status: Acute (11) Acute blood loss anemia Status: Acute Assessment and Plan for All Diagnoses:: Incarcerated femoral hernia. Status post exploratory laparotomy through right lower quadrant incision. Small bowel resection. Doing well. Diet has been advanced. Bowel movement noted. Voiding without difficulty. Plan today is to discontinue antibiotics. Advance diet. Discharge planning in the next 24 to 48 hours. Exam Vital signs and Labs for Last 24 Hours: Temp Pulse Resp BP Pulse Ox 98.8 F 71 16 160/89 H 92 L 04/24/21 07:52 04/24/21 07:52 04/24/21 07:52 04/24/21 07:52 04/24/21 07:52 Laboratory Results - last 24 hr 04/24/21 05:49: WBC 8.7, RBC 3.35 L, Hgb 9.6 L, Hct 28.4 L, MCV 84.8, MCH 28.7, MCHC 33.9, RDW 18.0 H, Plt Count 207 D, MPV 8.6, Neut % (Auto) 78.5, Lymph % (Auto) 11.8, [place] % (Auto) 8.7, Eos % (Auto) 0.8, Baso % (Auto) 0.2, Neut # (Auto) 6.9, Lymph # (Auto) 1.0, [place] # (Auto) 0.8, Eos # (Auto) 0.1, Baso # (Auto) 0.0 04/24/21 05:49: Sodium 138, Potassium 3.6, Chloride 117 H, Carbon Dioxide 19 L, Anion Gap 5.6, BUN 18 H, Creatinine 0.60, Estimated Creat Clear 36, Estimated GFR 95, Est GFR ( Amer) 116, Glucose 101 H, Calcium 7.5 L, Magnesium 2.0 I & O for Last 24 hours: Intake & Output 04/21/21 04/22/21 04/23/21 04/24/21 11:59 11:59 11:59 11:59 Intake Total 5575.000 / 5575.000 6520 / 6520 2635 / 2635 3386 / 3386 Output Total 680 / 680 650 / 650 925 / 1225 575 / 575 Balance 4895.000 / 4895.000 5870 / 5870 1710 / 1410 2811 / 2811 Weight 51.454 kg 51.88 kg 51.908 kg 52.9 kg - *Routine Abdominal Exam Comments: Abdomen soft. Nondistended. Minimally tender.
--- NOTE | 2021-04-24 14:55 | PC.NURSE ---
No acute changes noted this shift, patient has been up to chair for most of the day, has had 2 bowel movements this shift, abd soft and tender, hypoactive bowel sounds in all quads, pt has had one episode of nausea with emesis this am, treated with zofran per emar, tolerated soft diet for lunch, HR reg, edema noted to LUE, peripheral pulses 2+, denies any CP, voids per bsc, no s/s of distress noted, vss, will continue to monitor.
--- NOTE | 2021-04-24 22:38 | PC.WOUNDNOTE ---
Skin tear, 2cm. Scant amount of bloody drainage. Area was cleansed with NS and steri-strips applied.
[2021-04-25] VITALS (7 sets, daily range): BP systolic 139–189; BP diastolic 52–90; PULSE 73–110; RESP 16–18; TEMP 36.6–36.9; O2SAT 91–98; BMI 21.4
--- NOTE | 2021-04-25 01:17 | PC.NURSE ---
She is A&Ox3. She has been laying in bed. 11 debra intact on her right lower abdomen. 1 loose staple was found laying on skin. Incision site does not appear to be dehiscing. No drainage from site. Left groin site has DSG in place that is C/D/I. She has reported some nausea but no vomiting. 1+ non-pitting edema of bilateral hands and BLE.
[2021-04-25 06:04] LABS: Basophils % 0.3 % (0.1-2.0); Eosinophils # 0.1 K/mm3 (0.0-0.4); Eosinophils % 0.5 % (0.1-12.0); Hemoglobin 10.1 g/dL (12.2-16.2); Lymphocytes # 1.4 K/mm3 (0.7-4.5); Lymphocytes % 10.9 % (10-50); Mean Corpuscular HGB Conc 34.7 g/dL (31.8-35.4); Mean Corpuscular Hemoglobin 28.9 pg (27.0-31.2); Mean Corpuscular Volume 83.3 fl (81-99); Mean Platelet Volume 8.2 fl (7.4-10.4); Monocytes # 0.7 K/mm3 (0.1-1.0); Monocytes % 4.9 % (1.7-9.3); Neutrophils # 11.1 K/mm3 (1.8-7.8); Neutrophils % 83.5 % (37.0-80.0); Platelet Count 245 K/mm3 (142-424); Red Blood Count 3.49 M/mm3 (4.20-5.40); Red Cell Distribution Width 18.1 % (11.5-17.5); White Blood Count 13.2 K/mm3 (4.8-10.8)
[2021-04-25 06:08] LABS: Chloride 107 mmol/L (98-107); Sodium 135 mmol/L (136-145)
[2021-04-25 06:11] LABS: Blood Urea Nitrogen 12 mg/dl (7-17); Calcium 7.7 mg/dl (8.4-10.2); Carbon Dioxide 23 mmol/L (22.0-30.0); Creatinine Clearance Estimated 36 mL/min (50-200); Estimated Glomerular Filt Rate 95 ml/min (>60); GFR (African American) 116 ML/MIN (>60); Glucose 117 mg/dl (74-100); Magnesium 1.9 mg/dl (1.6-2.3)
--- NOTE | 2021-04-25 07:20 | HMH.GSPN ---
Subjective Narrative: Patient's bowels have moved. Her diet was advanced yesterday and she states that she had vomiting after she had eaten some mashed potatoes and pudding and peas. She is without complaints. Progress Note: A&P (1) Septic shock Status: Acute (2) Non-ST elevation myocardial infarction (NSTEMI) Status: Acute (3) Elevated troponin Status: Acute (4) New onset atrial fibrillation Status: Acute (5) Rapid atrial fibrillation Status: Acute (6) Vomiting Status: Acute (7) Weakness Status: Acute (8) Incarcerated inguinal hernia Status: Acute (9) Small bowel obstruction Status: Acute (10) DONY (acute kidney injury) Status: Acute (11) Acute blood loss anemia Status: Acute Assessment and Plan for All Diagnoses:: Slowly advance diet. May try full liquids later. Exam Vital signs and Labs for Last 24 Hours: Temp Pulse Resp BP Pulse Ox 98.0 F 75 17 139/78 93 L 04/25/21 04:00 04/25/21 04:00 04/25/21 04:00 04/25/21 04:00 04/25/21 04:00 Laboratory Results - last 24 hr 04/25/21 05:52: WBC 13.2 H D, RBC 3.49 L, Hgb 10.1 L, Hct 29.0 L, MCV 83.3, MCH 28.9, MCHC 34.7, RDW 18.1 H, Plt Count 245, MPV 8.2, Neut % (Auto) 83.5 H, Lymph % (Auto) 10.9, [place] % (Auto) 4.9, Eos % (Auto) 0.5, Baso % (Auto) 0.3, Neut # (Auto) 11.1 H, Lymph # (Auto) 1.4, [place] # (Auto) 0.7, Eos # (Auto) 0.1, Baso # (Auto) 0.0 04/25/21 05:52: Sodium 135 L, Potassium 3.0 L, Chloride 107, Carbon Dioxide 23 D, Anion Gap 8.0, BUN 12 D, Creatinine 0.60, Estimated Creat Clear 36, Estimated GFR 95, Est GFR ( Amer) 116, Glucose 117 H, Calcium 7.7 L, Magnesium 1.9 I & O for Last 24 hours: Intake & Output 04/22/21 04/23/21 04/24/21 04/25/21 11:59 11:59 11:59 11:59 Intake Total 6520 / 6520 2635 / 2635 3386 / 3386 250 / 250 Output Total 650 / 650 925 / 1225 575 / 575 300 / 300 Balance 5870 / 5870 1710 / 1410 2811 / 2811 -50 / -50 Weight 114 lb 6 oz 114 lb 7 oz 116 lb 9.992 oz 116 lb 7 oz - *Routine Abdominal Exam Comments: Her abdomen is soft. Incision is clean and intact.
--- NOTE | 2021-04-25 07:24 | HMH.ACPN2 ---
Internal Medicine - PN: Subj *Date: 04/25/21 *Time: 08:53 Interval history: Did well overnight. Remains hemodynamically stable and afebrile. Antibiotics stopped yesterday. With advancement of diet yesterday had an episode of nausea and vomiting. No further after treating her nausea. Continues to have bowel movements. Slight elevation in leukocytosis this morning however suspect this is more related to her episodes of emesis in the marginalization rather than saran infection given her overall clinical stability. Denies chest pain, shortness of breath, constipation. Exam Vital signs and Labs for Last 24 Hours: Temp Pulse Resp BP Pulse Ox 98.0 F 75 17 139/78 93 L 04/25/21 04:00 04/25/21 04:00 04/25/21 04:00 04/25/21 04:00 04/25/21 04:00 Laboratory Results - last 24 hr 04/25/21 05:52: WBC 13.2 H D, RBC 3.49 L, Hgb 10.1 L, Hct 29.0 L, MCV 83.3, MCH 28.9, MCHC 34.7, RDW 18.1 H, Plt Count 245, MPV 8.2, Neut % (Auto) 83.5 H, Lymph % (Auto) 10.9, [place] % (Auto) 4.9, Eos % (Auto) 0.5, Baso % (Auto) 0.3, Neut # (Auto) 11.1 H, Lymph # (Auto) 1.4, [place] # (Auto) 0.7, Eos # (Auto) 0.1, Baso # (Auto) 0.0 04/25/21 05:52: Sodium 135 L, Potassium 3.0 L, Chloride 107, Carbon Dioxide 23 D, Anion Gap 8.0, BUN 12 D, Creatinine 0.60, Estimated Creat Clear 36, Estimated GFR 95, Est GFR ( Amer) 116, Glucose 117 H, Calcium 7.7 L, Magnesium 1.9 I & O for Last 24 hours: Intake & Output 04/22/21 04/23/21 04/24/21 04/25/21 23:59 23:59 23:59 23:59 Intake Total 3615 / 3615 3124 / 3124 1921 / 192 Output Total 875 / 875 825 / 825 300 / 300 Balance 2740 / 2740 2299 / 2299 1622 / 1622 Weight 51.88 kg 51.908 kg 52.9 kg 52.815 kg Narrative: - Constitutional NAD distress, average body habitus, cooperative - *Routine HEENT Exam Head: Present: normocephalic Eye: Present: EOMI, PERRL ENT: Present: mucous membranes moist - *Routine Neck Exam Present: supple. Absent: lymphadenopathy - *Routine Respiratory Exam Present: CTA bilaterally - *Routine Cardiovascular Exam Present: RRR. Absent: murmur - *Routine Abdominal Exam Present: soft, minimal tenderness, Active bowel sounds. Surgical incisions clean dry and intact. - *Routine Extremities Exam Absent: cyanosis, clubbing, edema - *Routine Skin Exam Present: warm. Absent: rash - *Routine Neurological Exam Present: alert, oriented X3 Assessment and Plan (1) Septic shock Status: Acute Category: Medical Code(s): A41.9 - Sepsis, unspecified organism; R65.21 - Severe sepsis with septic shock (2) Non-ST elevation myocardial infarction (NSTEMI) Status: Acute Category: Medical Code(s): I21.4 - Non-ST elevation (NSTEMI) myocardial infarction (3) Elevated troponin Status: Acute Category: Medical Code(s): R77.8 - Other specified abnormalities of plasma proteins (4) New onset atrial fibrillation Status: Acute Category: Medical Code(s): I48.91 - Unspecified atrial fibrillation (5) Rapid atrial fibrillation Status: Acute Category: Medical Code(s): I48.91 - Unspecified atrial fibrillation (6) Vomiting Status: Acute Qualifiers: Vomiting type: unspecified Vomiting Intractability: intractable Nausea presence: with nausea Qualified Code(s): R11.2 - Nausea with vomiting, unspecified Category: Medical Code(s): R11.10 - Vomiting, unspecified (7) Weakness Status: Acute Category: Medical Code(s): R53.1 - Weakness (8) Incarcerated inguinal hernia Status: Acute Category: Medical Code(s): K40.30 - Unilateral inguinal hernia, with obstruction, without gangrene, not specified as recurrent (9) Small bowel obstruction Status: Acute Category: Medical Code(s): K56.609 - Unspecified intestinal obstruction, unspecified as to partial versus complete obstruction (10) DONY (acute kidney injury) Status: Acute Category: Medical Code(s): N17.9 - Acute kidney failure, unspecified (11) A
--- NOTE | 2021-04-25 09:15 | HMH.PNCARD ---
Subjective Date: 04/25/21 Time: 09:00 Principal diagnosis: Atrial fib, Hernia surgery Interval history: 81-year-old female admitted to [facility] [place] with high-grade small bowel obstruction secondary to incarcerated right inguinal hernia in which the patient underwent surgery to correct on 04/20/21. Patient was also noted to have a non-ST elevation myocardial infarction in which she also underwent left heart catheterization prior to surgery for the hernia. Left heart catheterization revealed severe single-vessel CAD involving the right coronary artery. Given the patient's moderate to high-grade small bowel obstruction secondary to an incarcerated right inguinal hernia the patient will be taken to surgery to have this corrected. During the left heart catheterization, patient was cardioverted due to being in atrial fibrillation with RVR. Patient did convert to sinus rhythm with occasional PAC. Patient has remained in sinus rhythm with an occasional PVC. Previously, patient had been placed on a norepinephrine drip to help maintain blood pressure. Blood pressure has remained stable. Vital signs are stable this a.m. Patient denies chest pain, tightness or pressure. Patient denies shortness of breath. No swelling noted of the lower extremities. Left distal pulse noticed as weak. Bilateral extremities noted as warm and pink. Patient continues to be on antibiotics due to postop surgery. Patient was started on a statin after heart catheterization. Patient is currently taking aspirin daily. Echo: Conclusion 1. Normal left ventricular size, mild concentric left ventricular hypertrophy, visually estimated ejection fraction 55% with no regional wall motion abnormality, diastolic parameters are inconclusive. 2. Mild mitral and tricuspid regurgitation. 3. No significant pericardial effusion noted. Discussed plan of care with Dr. Red. Patient does remain in sinus rhythm with occasional PAC. Patient is on amiodarone 200 mg twice daily due to Parsxymol Atrial fib. We will have patient to remain on amiodarone 200 mg twice daily for PAF. We will continue to hold patient from starting on anticoagulant for PAF at this time. We can discuss this at follow-up with cardiology. Patient will need to follow-up with cardiology in 1 week after discharge. At follow-up, we can discuss antihypertensive medications. Will defer management of surgical lesions to surgery. Thank you for allowing cardiology to participate in the care of this patient. Exam Vital signs and Labs for Last 24 Hours: Temp Pulse Resp BP Pulse Ox 98.0 F 75 17 139/78 93 L 04/25/21 04:00 04/25/21 04:00 04/25/21 04:00 04/25/21 04:00 04/25/21 04:00 Laboratory Results - last 24 hr 04/25/21 05:52: WBC 13.2 H D, RBC 3.49 L, Hgb 10.1 L, Hct 29.0 L, MCV 83.3, MCH 28.9, MCHC 34.7, RDW 18.1 H, Plt Count 245, MPV 8.2, Neut % (Auto) 83.5 H, Lymph % (Auto) 10.9, [place] % (Auto) 4.9, Eos % (Auto) 0.5, Baso % (Auto) 0.3, Neut # (Auto) 11.1 H, Lymph # (Auto) 1.4, [place] # (Auto) 0.7, Eos # (Auto) 0.1, Baso # (Auto) 0.0 04/25/21 05:52: Sodium 135 L, Potassium 3.0 L, Chloride 107, Carbon Dioxide 23 D, Anion Gap 8.0, BUN 12 D, Creatinine 0.60, Estimated Creat Clear 36, Estimated GFR 95, Est GFR ( Amer) 116, Glucose 117 H, Calcium 7.7 L, Magnesium 1.9 I & O for Last 24 hours: Intake & Output 04/22/21 04/23/21 04/24/21 04/25/21 23:59 23:59 23:59 23:59 Intake Total 3615 / 3615 3124 / 3124 1922 / 192 Output Total 875 / 875 825 / 825 300 / 300 Balance 2740 / 2740 2299 / 2299 1622 / 1622 Weight 114 lb 6 oz 114 lb 7 oz 116 lb 9.992 oz 116 lb 7 oz - Constitutional mild distress, average body habitus, cooperative - *Routine HEENT Exam Head: Present: normocephalic ENT: Present: mucous membranes moist - *Routine Neck Exam Present: supple, full ROM, normal carotid upstroke. Absent: JVD, carotid bruit, lymphadenopathy - *Routine Respiratory Exam P
--- NOTE | 2021-04-25 12:02 | PC.NURSE ---
pt vomited a moderate amount of bile in emesis bag (aprox 500mL).
--- NOTE | 2021-04-25 18:11 | PC.NURSE ---
1800 Report received from Pablito Dacosta RN. [id number] Pt to department, room 279 at this time. Pt transported via wheelchair by [facility] staff, tolerated transport well. Pt assisted to chair by staff, tolerated activity well. Visitor at bedside with pt. Pt without any s/s distress.
[2021-04-26 00:20] VITALS: BP 145/76; PULSE 73; RESP 17; TEMP 36.8; O2SAT 92
[2021-04-26 04:00] VITALS: BP 147/73; PULSE 78; RESP 20; TEMP 36.9; O2SAT 91
--- NOTE | 2021-04-26 04:40 | PC.NURSE ---
PATIENT HAS DONE WELL THIS SHIFT. SHE DID HAVE AN EXCESSIVE BOWEL MOVEMENT WITH A BLOODY/WATER RING PRESENT. BOWEL MOVEMENT WAS WATERY WITH SOFT AND FORMED PIECES THROUGHOUT. PATIENT HAS C/O NO PAIN THIS SHIFT AND VITAL SIGNS HAVE REMAINED STABLE. INCISION REMAINS C/D/I WITH NO S/S OF INFECTION PRESENT. IV SITES IN RIGHT UPPER ARM AND RIGHT A/C ARE PATENT AND FLUSH WELL. EXTENSIVE BRUISING TO LEFT ARM REMAINS UNCHANGED. CALL LIGHT WITHIN REACH. WILL CONTINUE TO MONITOR.
--- NOTE | 2021-04-26 06:29 | SW/DCPLANNER ---
Addendum entered by Misty Abarca 04/26/21 10:06: RECEIVED DISCHARGE ORDER FOR THIS PATIENT TO GO TO [facility]... WAITING ON CR TO LET US KNOW WHEN ROOM IS AVAILABLE AND SHE WILL DISCHARGE THERE... Addendum entered by Misty Abarca 04/26/21 07:36: SAW PATIENT THIS MORNING AND SHE WAS SITTING UP IN BED EATING HER BREAKFAST... SHE HAS A FULL LIQUID DIET AND APPEARED TO BE DOING WELL.. WILL ADVANCE DIET AND IF SHE DOES WELL SHE MAY GO TO REHAB AT [facility] LATER IN THE DAY... Original Note: SENT REFERRAL TO [facility] PER REQUEST AND VIV CAME UP TO SEE PATIENT AND HAS ACCEPTED HER PENDING SHE IS ABLE TO TAKE A DIET..NOT SURE IF SHE WILL BE READY TODAY BUT WILL SHARE THIS WITH MD THAT SHE DOES HAVE A BED AND CAN GO IF SHE HAS TOLERATED DIET AND IS MEDICALLY STABLE TO GO...
--- NOTE | 2021-04-26 08:13 | HMH.GSPN ---
Subjective Narrative: She has tolerated full liquids without nausea or vomiting. She states that she just had a big bowel movement . Per nursing she has had fairly loose stools. She currently claims to feel better now than in days . Progress Note: A&P (1) Septic shock Status: Acute (2) Non-ST elevation myocardial infarction (NSTEMI) Status: Acute (3) Elevated troponin Status: Acute (4) New onset atrial fibrillation Status: Acute (5) Rapid atrial fibrillation Status: Acute (6) Vomiting Status: Acute (7) Weakness Status: Acute (8) Small bowel obstruction Status: Acute (9) DONY (acute kidney injury) Status: Acute (10) Acute blood loss anemia Status: Acute (11) Incarcerated femoral hernia Status: Acute Assessment and plan: Overall, doing fairly well status post partial small bowel resection. Placement plan for ongoing rehabilitation Soft diet ordered per primary service this morning Likely discharge to facility soon with close ongoing follow-up Remove one half of debra Exam Vital signs and Labs for Last 24 Hours: Temp Pulse Resp BP Pulse Ox 98.4 F 78 20 147/73 H 91 L 04/26/21 04:00 04/26/21 04:00 04/26/21 04:00 04/26/21 04:00 04/26/21 04:00 I & O for Last 24 hours: Intake & Output 04/23/21 04/24/21 04/25/21 04/26/21 11:59 11:59 11:59 11:59 Intake Total 2635 / 2635 3386 / 3386 590 / 590 680 / 680 Output Total 925 / 1225 575 / 575 300 / 300 Balance 1710 / 1410 2811 / 2811 290 / 290 680 / 680 Weight 114 lb 7 oz 116 lb 9.992 oz 116 lb 7 oz Microbiology Reports for the Last 24 Hours: Microbiology 04/20/21 10:35 Blood Blood Culture - Final NO GROWTH AFTER 5 DAYS 04/20/21 10:35 Blood Blood Culture - Final NO GROWTH AFTER 5 DAYS - Constitutional no acute distress - *Routine Respiratory Exam Absent: respiratory distress - *Routine Cardiovascular Exam Comments: Regular rate - *Routine Abdominal Exam Present: soft Comments: Incision clean, dry, and intact. No erythema.
[2021-04-26 08:30] VITALS: BP 150/69; PULSE 76; RESP 20; TEMP 36.7; O2SAT 94
[2021-04-26 08:53] LABS: Basophils # 0.1 K/mm3 (0-0.2); Basophils % 0.4 % (0.1-2.0); Eosinophils # 0.1 K/mm3 (0.0-0.4); Eosinophils % 0.7 % (0.1-12.0); Hematocrit 33.6 % (37.0-47.0); Hemoglobin 11.2 g/dL (12.2-16.2); Lymphocytes # 1.7 K/mm3 (0.7-4.5); Lymphocytes % 11.1 % (10-50); Mean Corpuscular HGB Conc 33.4 g/dL (31.8-35.4); Mean Corpuscular Hemoglobin 28.5 pg (27.0-31.2); Mean Corpuscular Volume 85.2 fl (81-99); Mean Platelet Volume 8.1 fl (7.4-10.4); Monocytes % 6.8 % (1.7-9.3); Neutrophils # 12.3 K/mm3 (1.8-7.8); Neutrophils % 81.1 % (37.0-80.0); Platelet Count 315 K/mm3 (142-424); Red Blood Count 3.95 M/mm3 (4.20-5.40); Red Cell Distribution Width 18.4 % (11.5-17.5); White Blood Count 15.2 K/mm3 (4.8-10.8)
[2021-04-26 08:59] LABS: MANUAL DIFFERENTIAL MANUAL DIFFERENTIAL (MANUAL DIFF)
--- NOTE | 2021-04-26 09:03 | HMH.DCSUM ---
General - General Admission date:: 04/20/21 Discharge date: 04/26/21 HPI HPI: Ms. Reynolds is a pleasant 81-year-old female with no significant past medical history. She presented to the ER this afternoon due to worsening weakness, vomiting, abdominal pain. States that she began getting sick on Saturday with belly pain and nausea. Has proceeded to have emesis for the past 2 to 3 days with green emesis. Unable to tolerate any food or fluids. Still having some small bowel movements. Urine output has dwindled. Symptoms progressed to the point that her vomiting was intractable and felt weak to the point that she needed to seek higher care. She fell this morning but did not injure herself and decided to come to the ER for further management. No loss of consciousness. Denies chest pain or shortness of breath. Denies cough or cold symptoms. Denies diarrhea, says she has been having bowel movements. Denies urinary symptoms. On arrival to the ER she was noted to be in A. fib. No previous history of atrial fibrillation, has seen a footwear stitcher once a year for the past several years with no medications for rate control her blood pressure. Blood pressure normally in the 120s/70s per her report. Takes a daily baby aspirin and supplements. Otherwise no medications. Initial labs positive for an elevated troponin, leukocytosis, elevated lactate. Abdominal CT showed incarcerated right inguinal hernia. Both cardiology and surgery were consulted from the ER. Given her new onset A. fib, she was taken to the [facility] for cardioversion and left heart cath. See report for full details, no flow-limiting lesions found. Good response to cardioversion with transition to normal sinus rhythm. Patient treated with amiodarone. Subsequently taken to the operating room for right inguinal hernia repair/ex lap. Patient admitted to medicine thereafter. She has unfortunately developed hypotension after her surgeries. Has been treated with 2 L of LR bolused along with initiation of Levophed with improved stability and blood pressure. Patient has remained conscious and oriented through events postop. Hospital Course Hospital Course: Patient was admitted as noted, emergency surgery, events noted afterwards. Please see Dr. Emanuel's admission note and daily progress notes. Briefly patient improved over the next 24 hours on pressors. Was able to be taken off of these and atrial fibrillation was controlled with amiodarone. She progressed very nicely and over the last 24 hours PT/OT evaluated her and felt that she would benefit from ongoing skilled care. Patient will be transferred today to [place] for PT/OT, amiodarone will continue. Low-dose Lovenox for 1 week and then EKG in 5 days to assess if she is still in atrial fibrillation to assess for longer term anticoagulation therapy. At [facility] she will need PT/OT/dietary consultation. She will follow a soft mechanical diet. Please note she will need BMP and CBC next Saturday along with an EKG next Saturday. Objective Vital signs: Temp Pulse Resp BP Pulse Ox 98.4 F 78 20 147/73 H 91 L 04/26/21 04:00 04/26/21 04:00 04/26/21 04:00 04/26/21 04:00 04/26/21 04:00 no acute distress, thin, chronically ill appearing - *Routine HEENT Exam Head: Present: normocephalic Eye: Present: EOMI, PERRL ENT: Present: mucous membranes moist - *Routine Neck Exam Present: supple - *Routine Respiratory Exam Present: CTA bilaterally - *Routine Cardiovascular Exam Present: Normal S1, Normal S2, irregular rhythm - *Routine Abdominal Exam Present: soft, normoactive bowel sounds, surgical scars. Absent: tenderness Comments: Right lower quadrant scar with debra. Looks good. No drainage. - *Routine Extremities Exam Absent: cyanosis, clubbing, edema - *Routine Skin Exam Present: warm. Absent: rash - Detailed Eye Exam Eyelids: Bilateral normal inspection Results Labs on day
[2021-04-26 09:56] LABS: Eosinophils % 2 % (0-3); Lymphocytes % 10 % (10-50); Monocytes % 8 % (2-9); Neutrophils % 78 % (42-76); Platelet Estimate Normal; Total Cells Counted 100
[2021-04-26 09:57] LABS: Anisocytosis 2+; Microcytosis 1+
[2021-04-26 09:59] LABS: Hypochromasia 1+
[2021-04-26 10:47] LABS: Anion Gap 7.8 mEq/L (5-15); Blood Urea Nitrogen 9 mg/dl (7-17); Calcium 7.6 mg/dl (8.4-10.2); Carbon Dioxide 22 mmol/L (22.0-30.0); Chloride 106 mmol/L (98-107); Creatinine Clearance Estimated 36 mL/min (50-200); Estimated Glomerular Filt Rate 118 ml/min (>60); GFR (African American) 143 ML/MIN (>60); Glucose 112 mg/dl (74-100); Potassium 3.8 mmoL/L (3.5-5.1)
[2021-04-26 10:49] LABS: Sodium 132 mmol/L (136-145)
--- NOTE | 2021-04-26 11:00 | PC.NURSE ---
1/2 debra removed at this time. cleansed area before removal. pt tolerated well. steri strips placed.
--- NOTE | 2021-04-26 13:00 | PC.NURSE ---
PT HAS TOLERATED DIET WELL. NO VOMITING OR NAUSEA.
--- NOTE | 2021-04-26 16:30 | PC.NURSE ---
PT HAS DONE WELL THIS SHIFT. LUNGS REMAIN CTA AND BOWEL SOUNDS ACTIVE X4. NO PAIN THIS SHIFT. BRUISING NOTED TO RIGHT GROIN AND ABD INCISION TO RIGHT LOWER ABD. 1/2 INCISION LEFT AND PART STERI STRIPS. NO NEEDS. FIXING TO LEAVE TO BE [facility]
--- NOTE | 2021-04-26 16:30 | PC.NURSE ---
PT HAS HAD 2 LOOSE STOOLS THIS SHIFT
--- NOTE | 2021-04-26 16:45 | PC.NURSE ---
CARDIOLOGY DID NOT SEND PRESCRIPTION FOR AMIODORAONE. WILL CALL CARDIOLOGY TOMORROW TO GET THEM TO SEND PRESCRIPTION.
== END 2021-04-26 17:10 | DRG 329 ==
LOC: ER 13:11 → OR 13:49 → 2ND 13:57 → OB 04-25 18:11
PROVIDERS: Internal Medicine; Internal Medicine Adolescent Medicine; Surgery; Admitting Provider Internal Medicine Adolescent Medicine; Emergency Provider Emergency Medicine; PCP Family Medicine; Visit Provider Internal Medicine Adolescent Medicine
PROC: 4A023N7 Measurement of Cardiac Sampling and Pressure, Left Heart, Percutaneous Approach (ICD-10-PCS; principal; 2021-04-20 12:50)
PROC: 0DB80ZZ Excision of Small Intestine, Open Approach (ICD-10-PCS; CPT 49000; principal; 2021-04-20 14:00)
DX: K41.30 Unilateral femoral hernia, with obstruction, without gangrene, not specified as recurrent (principal); I21.A1 Myocardial infarction type 2; R57.1 Hypovolemic shock; K56.609 Unspecified intestinal obstruction, unspecified as to partial versus complete obstruction; N17.9 Acute kidney failure, unspecified; I48.91 Unspecified atrial fibrillation; I25.119 Atherosclerotic heart disease of native coronary artery with unspecified angina pectoris; K55.8 Other vascular disorders of intestine; I21.4 Non-ST elevation (NSTEMI) myocardial infarction
CPT/HCPCS: 49553; 44120; 36415; 71045; 74177; 80048; 80053; 81001; 82272; 82803; 83605; 83690; 83735; 84145; 84436; 84443; 84479; 84484; 85007; 85014; 85018; 85025; 86850; 87040; 87086; 92960; 93005; 93306; 93458; 93970; 96365; 96367; 96372; 97110; 97116; 97163; 97530; 99152; 99284; C1725; C1769; G0328; J0282; J1644; J2405; J2543; J2710; J7060; P9016; Q9967; U0003

== ENCOUNTER → 2021-04-28 02:44 | Outpatient (CLI) | payer MEDICARE, BC, SELFPAY ==
[2021-04-28 03:10] LABS: Hematocrit 27.4 % (37.0-47.0); Hemoglobin 9.5 g/dL (12.2-16.2)
[2021-04-28 19:08] LABS: Hematocrit 29.4 % (37.0-47.0); Hemoglobin 10.1 g/dL (12.2-16.2)
== END ==
PROVIDERS: Visit Provider Nurse Practitioner Family
DX: D64.9 Anemia, unspecified (principal)
CPT/HCPCS: 85014; 85018

== ENCOUNTER 2021-07-01 13:37 | Emergency (ER) | payer MEDICARE, BC, SELFPAY ==
[2021-07-01 13:38] VITALS: BP 126/74; PULSE 74; RESP 18; TEMP 36.8; O2SAT 98; BMI 19.2
--- NOTE | 2021-07-01 15:11 | HMH.EDUTC ---
[facility] [place] Clinical Impression: Cough Disposition: Home, Self-Care Condition on Discharge: Good Instructions: Preventing the Spread of Coronavirus Discharge Instructions Additional Instructions: You have been tested for COVID19. Please isolate yourself as if you are positive until test results received. Referrals: Uriel Francois MD [Primary Care Provider] - Time of Disposition: 15:20 Medical Decision Making - Christian Inquiry Pt receiving controlled substance: No Vital Signs: 07/01/21 13:38 Temperature 98.3 F Temperature Source Oral Pulse Rate [Left Radial] 74 Respiratory Rate 18 Blood Pressure [Right Arm] 126/74 Blood Pressure Mean [Right Arm] 91 Blood Pressure Source [Right Arm] Automatic Cuff Blood Pressure Position [Right Arm] Sitting 02 Sat by Pulse Oximetry 98 Oxygen Delivery Method Room Air Orders (Tests/Meds): ORDERS Category Date Time Status Covid-19 Nasal PCR ([facility]) Routine Lab 07/01/21 14:50 Received [facility] [place]PI - General Stated complaint: covid test Time Seen by Provider: 07/01/21 15:11 Mode of Arrival: Ambulatory Source of Information: Patient Limitations: No Limitations Description of Symptoms (Recalled from Triage Doc. by RN): c/o cough, wants a covid test HEENT Symptoms (Recalled from RN notes): No Resp Symptoms (Recalled from RN notes): Yes (cough) Skin Symptoms (Recalled from RN notes): No MS Symptoms (Recalled from RN notes): No Functional Status (Recalled from RN notes): wnl - History of Present Illness Provider Complaint: Patient had a low grade fever, sore throat, cough 2 days ago. Now has niggling cough. Would like to have COVID test. No known contacts, but has gone to 2 services this past week and has been around more people than she usually is. She has been vaccinated against COVID19. Onset (ago): day(s) (2) Location: chest Relieving factors: none Exacerbating factors: none Associated symptoms: cough Treatments prior to arrival: none - Related Data Home Medications Medication Instructions Recorded Confirmed aspirin 81 mg tablet,delayed 81 mg PO DAILY 04/30/19 05/17/21 release calcium carb 300 mg-D3 800 1 tab PO DAILY 04/30/19 05/17/21 unit-mag ox 25 mg-copy reader 0.5 mg-blu-Zn tablet omega-3 fatty acids 500 mg capsule 500 mg PO DAILY 04/30/19 05/17/21 Previous Rx's Medication Instructions Recorded Enoxaparin Sodium [Lovenox 40 mg SQ HS #30 syringe 04/26/21 40mg/0.4mL syringe] Oxycodone HCl/Acetaminophen 1 each PO Q6HP PRN #15 tab 04/26/21 [Percocet 5/325mg tablet] Pantoprazole Sodium [Protonix 40mg 40 mg PO HS #30 tablet.dr 04/26/21 tablet] amiodarone 200 mg tablet 200 mg PO BID #60 tab 04/27/21 Allergies Allergy/AdvReac Type Severity Reaction Status Date / Time No Known Allergies Allergy Verified 05/17/21 14:02 - Worker's Comp Is this a Worker's Comp case?: No [facility] History - Hepatitis A Screen Drug use history?: No High risk sexual behaviors?: No History of sexually transmitted infection?: No Currently employed?: No Childcare worker?: No Do you have indoor plumbing?: Yes Do you have electricity?: Yes Attestation statement:: This patient has been screened for Hepatitis A risk factors. I have reviewed the patient's past medical history: Yes Medical History: Denies:: Arrhythmia, Atherosclerotic Heart Disease, Coronary Artery Disease, Diabetes Mellitus Type 1, Diabetes Mellitus Type 2 Other Surgeries: Yes: Cholecystectomy, Hernia Repair Amputation: No Fractures: No - Social History Smoking Status: Never smoker Alcohol Intake: never Substance Use Type: denies use Occupational Status: retired Household Members: none Family Hx:: No significant family history ROS Obtained: Yes All systems reviewed & no additional complaints - Respiratory Respiratory: Reports cough Physical Exam - General General appearance: alert, in no apparent distress - Head Head exam: normocephalic
[2021-07-01 15:21] VITALS: BP 126/74; PULSE 74; RESP 18; TEMP 36.8; O2SAT 98
--- NOTE | 2021-07-01 19:33 | PC.NURSE ---
PT called about positive covid test
== END 2021-07-01 15:22 | disposition home or self-care (01) ==
PROVIDERS: Emergency Provider Physician Assistant; PCP Internal Medicine Adolescent Medicine
DX: U07.1 COVID-19 (principal)
CPT/HCPCS: 99202; G0463; U0003

== ENCOUNTER → 2021-08-10 12:15 | Outpatient (CLI) | payer MEDICARE, BC, SELFPAY ==
[2021-08-10 13:23] LABS: Blood Urea Nitrogen 17 mg/dl (7-17); Estimated Glomerular Filt Rate 69 ml/min (>60); GFR (African American) 83 ML/MIN (>60)
== END ==
PROVIDERS: Visit Provider Surgery
DX: Z01.812 Encounter for preprocedural laboratory examination (principal)
CPT/HCPCS: 36415; 82565; 84520

== ENCOUNTER → 2021-08-17 08:41 | Outpatient (CLI) | payer MEDICARE, BC, SELFPAY ==
--- NOTE | 2021-08-17 08:42 | CT_ITS ---
PROCEDURE: CT ABDOMEN PELVIS W CON CLINICAL INDICATION: Incarcerated femoral hernia Follow-up hernia COMPARISON: CT CT ABDOMEN PELVIS W CON from 04/20/2021 TECHNIQUE: IV Contrast: 75ML Isovue 370 Oral Contrast 450ml Redicat Axial images obtained with sagittal and coronal reformats. All CT scans at the facility use one or more dose reduction, viz: automated exposure control, ma/kV adjustment per patient size (including targeted exams where dose is matched to indication, i.e. head), or iterative reconstruction technique. FINDINGS: LOWER THORAX: No acute finding ABDOMEN & PELVIS: No change 9 mm hypodensity right hepatic lobe segment 7. Fatty liver. The spleen, adrenal glands, and pancreas have an unremarkable appearance. No change 2 cm right renal cyst. No renal or ureteral calculi.. No ureteral calculi. No intestinal obstruction or free air. No evidence of appendicitis or diverticulitis. There is a mild amount of retained colonic feces. No evidence of recurrence inguinal hernia. There is some stranding of the subcutaneous fat in the right inguinal region suggesting prior hernia repair. No abdominal wall hernia is evident.. Coarse calcifications are present involving the uterus and may be due to fibroid involvement. No abnormal fluid collections. Degenerative changes of the lumbar spine with dextroscoliosis. Mild osteoarthritic changes of the hips. IMPRESSION: No acute finding. No evidence of recurrence or residual inguinal hernia. Dictated by: Kar Patrick MD 08/18/2021 07:31 Kar Patrick MD in OV 08/18/2021 07:31
== END ==
PROVIDERS: PCP Internal Medicine Adolescent Medicine; Visit Provider Surgery
DX: K41.30 Unilateral femoral hernia, with obstruction, without gangrene, not specified as recurrent (principal)
CPT/HCPCS: 74177; Q9967

== ENCOUNTER → 2021-12-13 09:02 | Outpatient (CLI) | payer MEDICARE, BC, SELFPAY ==
[2021-12-13 09:31] LABS: Basophils # 0.1 K/mm3 (0-0.2); Basophils % 1.3 % (0.1-2.0); Eosinophils # 0.2 K/mm3 (0.0-0.4); Eosinophils % 2.6 % (0.1-12.0); Hematocrit 45.4 % (37.0-47.0); Hemoglobin 14.6 g/dL (12.2-16.2); Lymphocytes # 1.7 K/mm3 (0.7-4.5); Lymphocytes % 26.9 % (10-50); Mean Corpuscular HGB Conc 32.1 g/dL (31.8-35.4); Mean Corpuscular Hemoglobin 27.8 pg (27.0-31.2); Mean Corpuscular Volume 86.7 fl (81-99); Mean Platelet Volume 7.9 fl (7.4-10.4); Monocytes # 0.4 K/mm3 (0.1-1.0); Monocytes % 6.5 % (1.7-9.3); Neutrophils # 3.9 K/mm3 (1.8-7.8); Neutrophils % 62.8 % (37.0-80.0); Platelet Count 290 K/mm3 (142-424); Red Blood Count 5.24 M/mm3 (4.20-5.40); Red Cell Distribution Width 15.2 % (11.5-17.5); White Blood Count 6.2 K/mm3 (4.8-10.8)
[2021-12-13 10:43] LABS: Alanine Aminotransferase 14 U/L (12-78); Albumin Level 4.3 g/dl (3.5-5.0); Albumin/Globulin Ratio 1.6 (1.1-1.8); Alkaline Phosphatase 74 U/L (38-126); Aspartate Amino Transferase 32 U/L (14-36); Bilirubin,Total 0.7 mg/dl (0.2-1.3); Blood Urea Nitrogen 18 mg/dl (7-17); Calcium 9.6 mg/dl (8.4-10.2); Chloride 103 mmol/L (98-107); Chol/HDL Ratio 3.9 (1-3.5); Cholesterol 234 mg/dl (140-200); Estimated Glomerular Filt Rate 60 ml/min (>60); GFR (African American) 72 ML/MIN (>60); Globulin 2.7 g/dL (1.3-3.2); Glucose 101 mg/dl (74-100); HDL Cholesterol 60 mg/dl (40-60); Sodium 138 mmol/L (136-145); Triglycerides 120 mg/dl (30-150); VLDL Cholesterol 24 mg/dL (0-40)
[2021-12-13 10:54] LABS: Direct LDL Cholesterol 131.33 mg/dL (100-129)
[2021-12-13 11:00] LABS: Free Thyroxine Index 2.9 ug/dL (5.93-13.13); T4 (Thyroxine) 9.7 ug/dl (5.53-11.0); Triiodothryronine (T3) Uptake 30 % (23.5-40.5)
[2021-12-13 11:14] LABS: Thyroid Stimulating Hormone 1.35 uIU/mL (0.465-4.68)
[2021-12-13 11:18] LABS: Carbon Dioxide 29 mmol/L (22.0-30.0)
== END ==
PROVIDERS: Visit Provider Internal Medicine Adolescent Medicine
DX: I25.119 Atherosclerotic heart disease of native coronary artery with unspecified angina pectoris (principal); I48.0 Paroxysmal atrial fibrillation; E87.6 Hypokalemia
CPT/HCPCS: 36415; 80053; 80061; 83735; 84436; 84443; 84479; 85025

== ENCOUNTER 2022-10-09 15:00 | Outpatient (RCR) | payer MEDICARE, BC, SELFPAY ==
--- NOTE | 2022-08-01 10:00 | HMH.PTOPEV ---
PT Outpatient Evaluation Rehab PT Outpatient Evaluation Start: 08/01/22 09:01 Freq: Status: Active Protocol: Document 08/01/22 09:04 MERYASYA (Rec: 08/01/22 10:00 BLAINE [id number]) E-signed By Martin Renteria, PT Outpatient Therapy Subjective History Subjective History This is the initial Physical THerapy evaluation for Mayo Reynolds. Pt is an 82 y/o female referred to Physical Therapy for c/o frequent falls . Pt reports 3 falls this year so far, and 3 falls last year. Pt does reportPMH of [place] , heart cath, and hernia repair last year. Pt reports she feels like her laeft ankle just gives out - pt states most falls are to the left. Anr pt states she feels like her feet just get tangled up Chief Complaint Weakness,Other Symptom Type Other Symptoms Relieved By Nothing Symptoms Aggravated By Walking Prior Functional Limitations None Current Functional Limitations Recreation Activity,Balance Level of pain today (0-10) 0 Pain scale - at its best (0-10) 0 Pain scale - at its worst (0-10) 0 Balance Eval Chief Complaint vertigo No Did you feel dizzy, unsteady or faint? No Hx of Falls Hx Falls Yes Number in last 6 months 3 Gait/Posture Asssessment General Gait Observation Shuffling Step Assistive Devices Straight Cane Level of Transfer Assist Standby Assistance Hip Observation in Gait Swing Externally Rotated Hip Observation in Gait Stance Externally Rotated,Abducted Ankle/Foot Observation in Gait Swing Decreased Foot Clearance [place] Feet Together/Eyes open/Stable Surface pass Feet Together/Eyes Closed/Stable Surface pass Feet Together/Eyes open/Unstable Surface pass Feet Together/Eyes Closed/Unstable pass Surface Outpatient Therapy Assessment Impairments Problems/Impairmments Impaired Strength,Impaired Walking,Impaired Stepping on Uneven Surface,Impaired Recreational Activities, Impaired Balance,Impaired Self Care/Self Management Prognosis Rehab Potential Fair Clinical Impression Consistent with Diagnosis Yes Short Term Goals Number of Weeks 4 Increase Strength
--- NOTE | 2022-09-06 15:51 | HMH.RHREAS ---
Rehab Reassessment Rehab OP Re-assessment Start: 09/06/22 15:37 Freq: Status: Active Protocol: Document 09/06/22 15:38 RICHARD (Rec: 09/06/22 15:51 RICHARD [id number]) E-signed By Heladio Han, PT Rehab Re-assessment Subjective Subjective Pt reports feeling 80% better related to strength, balance, gait, and endurance since I eval, however, pt reports a fall ~ 1 week ago when attempting to sit on the commode with lights off in the bathroom, causing her to miss half the seat, fell off the side, 'and bruised up my right side'. Objective Objective Notes Tinetti: 24 MMT: RED HIP FLX 4+/5, B HIP ADD 5/5, B HIP ABD 4+-5/5, B KNEE FLX 5/5, B KNEE EXT 5/5, B DF 5/5 GAIT: Pt able to ambulate on unlevel terrain w/o A.D. and w /o LOB Assessment Progress Assessment Progressing as Expected Assessment Notes improved strength, balance, and gait Patient goals met STG'S 3/4 LTG'S 1/5 Goals Not Met STG'S /4, LTG'S 4/5 Plan Plan Pt to continue w/skilled P.T. to make further improvements in strength, gait, and balance to allow for optimal function Frequency of Therapy 2-3x/wk Duration of therapy 4-6wks Time and Billing Re-Eval Time 12 Re-Eval Billing Units 0 PHYSICIAN CERTIFICATION: I certify the specified therapy services for Mayo Reynolds are required, authorized, and reviewed every 30 days.
== END 2022-10-09 15:05 | disposition home or self-care (01) ==
LOC: PT 15:00
PROVIDERS: PCP Internal Medicine Adolescent Medicine; Visit Provider Internal Medicine Adolescent Medicine
DX: R29.6 Repeated falls (principal)
CPT/HCPCS: 97110; 97112; 97163; 97164; 97530

== ENCOUNTER 2024-03-05 12:15 | Outpatient (CLI) | payer MEDICARE, BC, SELFPAY ==
--- NOTE | 2024-03-05 | CA_ITS ---
FINAL REPORT TECHNIQUE: Multiple transverse and longitudinal images were performed of the right femoral-popliteal deep venous system with augmentation and compression maneuvers. CLINICAL HISTORY: right leg pain after injury, Varicosities. FINDINGS: Right lower extremity duplex ultrasound demonstrates normal flow in the deep venous system. There is no abnormal echogenicity to suggest thrombus. There is normal compression and augmentation. IMPRESSION: No evidence of right DVT. Reviewed, Interpreted and Dictated by Mike Elizondo III, MD Transcribed by Carine Zavala Authenticated and [facility]
== END 2024-03-05 23:59 | disposition home or self-care (01) ==
PROVIDERS: PCP Internal Medicine Adolescent Medicine; Visit Provider Internal Medicine Adolescent Medicine
DX: M79.604 Pain in right leg (principal); I86.8 Varicose veins of other specified sites
CPT/HCPCS: 93971

== ENCOUNTER 2024-09-05 17:10 | Emergency (ER) | payer MEDICARE, BC, SELFPAY ==
[2024-09-05 17:29] VITALS: BP 122/62; PULSE 71; RESP 18; TEMP 36.7; O2SAT 96; BMI 20.1
--- NOTE | 2024-09-05 17:56 | ED_ITS ---
Discharge Plan Disposition Patient Disposition: Home, Self-Care Condition: Good Prescriptions Prescriptions: New cephalexin 500 mg capsule 500 mg PO Q12H Qty: 20 0RF mupirocin 2 % ointment 1 applic topical BID Qty: 22 0RF No Action carvedilol 12.5 mg tablet 12.5 mg PO DAILY Patient Comments: TAKE 1 TABLET BY MOUTH TWICE DAILY FOR 90 DAYS lisinopril 10 mg tablet 10 mg PO DAILY Patient Comments: TAKE 1/2 (ONE-HALF) TABLET BY MOUTH TWICE DAILY Referrals Follow up/Referrals: Uriel Francois MD [Primary Care Provider] - See instructions Activity Restrictions/Add. Instructions Additional Instructions/Restrictions: Take medication as prescribed. Increase fluids. Keep site covered with a bandage. Follow up with primary care provider next week. Clinical Impressions Clinical Impression: Cellulitis Qualifiers: Site of cellulitis: extremity Site of cellulitis of extremity: lower extremity Laterality: left Qualified Code(s): L03.116 - Cellulitis of left lower limb Instructions Patient Instructions: Cellulitis Print Language Print Language: Turkish Discharge ED Provider: Sherita Ramachandran [facility] General Stated complaint: left leg infection Mode of Arrival: Ambulatory Source of Information: Patient Time Seen by Provider: 09/05/24 17:55 Description of Symptoms (Recalled from Triage Doc. by RN): POSSIBLE INFECTED SKIN TEAR ON LEFT LOWER LEG, SWOLLEN AND RED, WARM TO TOUCH HEENT Symptoms (Recalled from RN notes): No Resp Symptoms (Recalled from RN notes): No Skin Symptoms (Recalled from RN notes): Yes MS Symptoms (Recalled from RN notes): No Functional Status (Recalled from RN notes): WNL History of Present Illness Provider Complaint: Pt reports that she had a plastic piece sticking out from her bed rail and scraped her leg against it causing a left lower leg skin tear. She states that the site now looks infected and the skin around is red and warm to touch. Related Data Home Medications ?Medication ?Instructions ?Recorded ?Confirmed carvedilol 12.5 mg tablet 12.5 mg PO DAILY 09/05/24 09/05/24 lisinopril 10 mg tablet 10 mg PO DAILY 09/05/24 09/05/24 Previous Rx's ?Medication ?Instructions ?Recorded cephalexin 500 mg capsule 500 mg PO Q12H #20 caps 09/05/24 mupirocin 2 % topical ointment 1 applic topical BID #22 grams 09/05/24 Allergies Allergy/AdvReac Type Severity Reaction Status Date / Time No Known Allergies Allergy Verified 09/06/21 14:03 Worker's Comp Is this a Worker's Comp case?: No [facility] Disclaimer: The information contained in this section may have been updated after the patient was seen, as this information can be updated by other users. Social History Smoking Status: Never smoker alcohol intake: never substance use type: denies use current occupational status: retired Travel in the last 8 weeks: None household members: none ROS Obtained: Yes All systems reviewed & no additional complaints except as documented Constitutional Constitutional: Reports system reviewed and no additional complaints, except as documented Eyes Eyes: Reports system reviewed and no additional complaints, except as documented ENT Ears, Nose, Mouth, and Throat: Reports system reviewed and no additional complaints, except as documented Cardiovascular Cardiovascular: Reports system reviewed and no additional complaints, except as documented Respiratory Respiratory: Reports system reviewed and no additional complaints, except as documented Gastrointestinal Gastrointestingal: Reports system reviewed and no additional complaints, except as documented Genitourinary Female Genitourinary: Reports system reviewed and no additional complaints, except as documented Musculoskeletal Musculoskeletal: Reports system reviewed and no additional complaints, except as documented Integumentary/Breasts Skin/Breast: Reports system reviewed and no additional complaints, except as documented, Reports redness, Reports sores and Reports skin swelling Neurologic Neurologic: Reports system reviewed and no additional complaints, except as documented Endocrine Endocrine: Reports system reviewed and no additional complaints, except as documented Hematologic/Lymphatic Henatologic/Lymphatic: Reports system reviewed and no additional complaints, except as documented Allergic/Immunologic Allergic/Immunologic: Reports system reviewed and no additional complaints, except as documented Physical Exam General General appearance: alert and in no apparent distress Head Head exam: atraumatic and normocephalic Eye Eye exam: Present normal appearance ENT ENT exam: Present normal exam and normal oropharynx Neck Neck exam: Present normal inspection Chest Chest inspection: Present normal inspection and symmetric chest wall rise Respiratory Respiratory exam: Present normal lung sounds bilaterally Cardiovascular Cardiovascular exam: Present regular rate and normal rhythm Abdominal Exam Abdominal exam: Present soft Extremities Exam Extremities exam: Present normal inspection Back Exam Back exam: Present normal inspection Neurological Exam Neurological exam: Present alert and oriented X3 Psychiatric Psychiatric exam: Present normal affect and normal mood Skin Skin exam: Present warm and dry Expanded Skin Exam Type of lesion: Present laceration Distribution: LLE Description: Present tenderness, erythematous and swelling Lymphatic Lymphatic Findings: no adenopathy Medical Decision Making Medical Records Screening: Per USPSTF and CDC recommendations, given the prevalence of disease in our region, it is our hospital?s policy to screen for HIV and viral Hepatitis for all patients aged 18 and over and those with ongoing risk factors. Christian Inquiry Pt receiving controlled substance: No Christian was queried for this patient: No Vital Signs: 09/05/24 17:29 Temperature 98.0 F Temperature Source Oral Pulse Rate [Left Brachial] 71 Respiratory Rate 18 Blood Pressure [Left Arm] 122/62 Blood Pressure Mean [Left Arm] 82 02 Sat by Pulse Oximetry 96 Procedures Miscellaneous Procedure Procedure Performed: left lower leg site cleaned with hibeclens, and rinsed with water. triple antibiotic applied and covered with a non-stick dressing and wrapped with coban.
[2024-09-05 18:30] VITALS: BP 122/62; PULSE 71; RESP 20; TEMP 36.6
== END 2024-09-05 18:33 | disposition home or self-care (01) ==
PROVIDERS: Emergency Provider Nurse Practitioner Family; PCP Internal Medicine Adolescent Medicine
DX: L03.116 Cellulitis of left lower limb (principal); R22.42 Localized swelling, mass and lump, left lower limb
CPT/HCPCS: 99212; G0381

== ENCOUNTER 2024-12-19 10:37 | Outpatient (CLI) | payer MEDICARE, BC, SELFPAY ==
[2024-12-19 11:02] LABS: Basophils % 0.5 % (0.1-2.0); Eosinophils # 0.4 K/mm3 (0.0-0.4); Eosinophils % 4.5 % (0.1-12.0); Hematocrit 43.8 % (37.0-47.0); Hemoglobin 13.8 g/dL (12.2-16.2); Lymphocytes # 1.5 K/mm3 (0.7-4.5); Mean Corpuscular HGB Conc 31.5 g/dL (31.8-35.4); Mean Corpuscular Hemoglobin 26.6 pg (27.0-31.2); Mean Corpuscular Volume 84.6 fl (81-99); Mean Platelet Volume 9.1 fl (7.4-10.4); Monocytes # 0.8 K/mm3 (0.1-1.0); Monocytes % 9.4 % (1.7-9.3); Neutrophils # 5.3 K/mm3 (1.8-7.8); Neutrophils % 66.3 % (37.0-80.0); Platelet Count 291 K/mm3 (142-424); Red Blood Count 5.18 M/mm3 (4.20-5.40); Red Cell Distribution Width 15.6 % (11.5-17.5)
[2024-12-19 11:41] LABS: Albumin Level 4.3 g/dl (3.5-5.0); Chloride 103 mmol/L (98-107); Potassium 4.7 mmoL/L (3.5-5.1); Sodium 140 mmol/L (136-145)
[2024-12-19 11:43] LABS: Amylase 85 U/L (30-110)
[2024-12-19 11:44] LABS: Alanine Aminotransferase 15 U/L (12-78); Albumin/Globulin Ratio 1.7 (1.1-1.8); Alkaline Phosphatase 79 U/L (38-126); Anion Gap 12.7 mEq/L (5-15); Aspartate Amino Transferase 28 U/L (14-36); Bilirubin,Total 0.5 mg/dl (0.2-1.3); Blood Urea Nitrogen 20 mg/dl (7-17); Calcium 9.4 mg/dl (8.4-10.2); Carbon Dioxide 29 mmol/L (22.0-30.0); Estimated Glomerular Filt Rate 59 ml/min (>60); GFR (African American) 72 ML/MIN (>60); Globulin 2.6 g/dL (1.3-3.2); Glucose 101 mg/dl (74-100); Lipase 158 U/L (23-300); Total Protein,Serum 6.9 g/dl (6.3-8.2)
[2024-12-19 12:18] LABS: Erythrocyte Sedimentation Rate 13 mm/hr (0-30)
== END 2024-12-19 23:59 | disposition home or self-care (01) ==
LOC: LAB 10:38
PROVIDERS: PCP Internal Medicine Adolescent Medicine; Visit Provider Nurse Practitioner Family
DX: R10.30 Lower abdominal pain, unspecified (principal)
CPT/HCPCS: 36415; 80053; 82150; 83690; 85025; 85651

== ENCOUNTER 2025-01-06 08:28 | Outpatient (CLI) | payer MEDICARE, BC, SELFPAY ==
--- NOTE | 2025-01-06 08:33 | CT_ITS ---
FINAL REPORT TECHNIQUE: Thin section axial images are obtained through the abdomen and pelvis after intravenous contrast. Reconstruction images were obtained from the axial data. Exam was performed using dose reduction techniques. CLINICAL HISTORY: LOWER ABD PAIN/BLOOD IN STOOL COMPARISON: 08/17/2021 FINDINGS: LUNG BASES: Lung bases are clear. Heart size is normal. LIVER: There is a small hypodense area in the right lobe of the liver, which likely represents a hepatic cyst. GALLBLADDER/BILIARY SYSTEM: The gallbladder has been surgically resected. No biliary dilatation. SPLEEN: Unremarkable. PANCREAS: Unremarkable. ADRENALS: Unremarkable. KIDNEYS/URETERS/BLADDER: A right renal cyst is again noted. There is thickening of the wall of the bladder, with surrounding abnormal attenuation, favor cystitis. GI TRACT: There is a surgical anastomosis in the right upper quadrant in a loop of small bowel. The loop is mildly prominent, which may represent postoperative change. The appendix is normal in appearance. A large amount of retained stool is present in the colon. There is diverticulosis of the sigmoid colon without evidence of acute inflammatory change. PELVIC ORGANS: Multiple calcified fibroids are present in the uterus. LYMPH NODES/RETROPERITONEUM/MESENTERY: No lymphadenopathy. No abdominal aortic aneurysm. ABDOMINAL WALL: The abdominal wall is intact. FREE FLUID: No ascites. BONES: No acute osseous abnormality. IMPRESSION: Bladder wall thickening is present with surrounding abnormal attenuation, favor cystitis. A large amount of retained stool is noted. Reviewed, Interpreted and Dictated by Emerita Mcgowan MD Transcribed by Christine Blackwood Authenticated and [facility]
[2025-01-06] MEDS: SODIUM CHLORIDE 0.9% 10ML SYR (RAD ONLY) 10 ML IV (09:00)
[2025-01-06] MEDS: IOPAMIDOL-370 (76%);100ML BOTTLE 75 ML IV (09:00)
== END 2025-01-06 23:59 | disposition home or self-care (01) ==
LOC: RAD 08:29
PROVIDERS: PCP Internal Medicine Adolescent Medicine; Visit Provider Nurse Practitioner Family
DX: R10.30 Lower abdominal pain, unspecified (principal); K92.1 Melena
CPT/HCPCS: 74177; Q9967

== ENCOUNTER 2025-01-08 15:10 | Outpatient (CLI) | payer MEDICARE, BC, SELFPAY | END 2025-01-08 23:59 | disposition home or self-care (01) | LOC: LAB.DROPOF 15:11 | PROVIDERS: PCP Internal Medicine Adolescent Medicine; Visit Provider Nurse Practitioner Family | DX: N30.90 Cystitis, unspecified without hematuria (principal) | CPT/HCPCS: 87086; 87088; 87186 ==

== ENCOUNTER 2025-02-02 14:52 | Outpatient (CLI) | payer MEDICARE, BC, SELFPAY ==
[2025-02-02 15:37] LABS: Coronavirus 19, PCR Not Detected (NotDetected); Influenza A, PCR Not Detected (NotDetected); Influenza B, PCR Not Detected (NotDetected)
== END 2025-02-02 23:59 | disposition home or self-care (01) ==
LOC: LAB.DROPOF 02-03 13:11
PROVIDERS: PCP Student in an Organized Health Care Education/Training Program; Visit Provider Student in an Organized Health Care Education/Training Program
DX: R50.9 Fever, unspecified (principal)
CPT/HCPCS: 87636

== ENCOUNTER 2025-09-06 09:07 | Outpatient (CLI) | payer MEDICARE, BC, SELFPAY ==
--- OUTSIDE RECORDS SUMMARY | 2025-09-06 09:16 | XMS_ITS | Clinical Summary ---
Author Organization [facility] Address [address] [id number] Care Team Providers Care Information Systems Security Specialist Name Role Phone Uriel Francois MD Primary Care Provider [phone] Social History Tobacco Use Types Packs/Day Years Used Date Smoking Tobacco: Never Assessed Comments Unknown Sex and Gender Information Value Date Recorded Sex Assigned at Not on file Legal Sex Female 6:44 PM EDT Gender Identity Not on file Sexual Orientation Not on file Plan of Treatment Upcoming Encounters Date Type Department Care Team (Late st Contact Info) Description 01/05/2026 12:00 PM EST Ovarian Cancer Screening [facility] Gynecology [address] [place] [address] Health Maintenance Due Date Last Done Comments [facility]-Depression Screening 1940 [facility]-Medicare Annual Wellness (AWV) 1940 [facility]-/Child/Adol SDOH Screenings 1938 [facility]- SDOH Screenings 1956 [facility]-Adult SDOH Screenings 1956 [facility]-Pneumococcal Vaccine: 50+ Years (1 of 1 - PCV) 1988 [facility]-Zoster Vaccines (1 of 2) 1988 [facility]-RSV Vaccine: 60+ Years or (1 - 1-dose 75+ series) 2013 [facility]-Bone Density Scan 05/11/2023 05/11/2021 [id number] Vaccine (2023- season) 2025 08/18/2024, 08/19/2023, 10/17/2022, Additional history exists [facility]-Influenza Vaccine (#1) 07/26/202508/17, 08/19/2023, 09/06/2021, Additional history exists [facility]-DTaP,Tdap,and Td Vaccines (2 - Td or Tdap) 09/16/2034 09/16/2024 HPV Vaccines Aged Out No longer eligi ble based on patient's age to complete this topic [facility]-HIB Vaccines Aged Out No longer e ligible based on patient's age to complete this topic [facility]-Hepatitis A Vaccines Aged Out No longer eligible based on patient's age to complete this topic [facility]-IPV Vaccines Aged Out No longer e ligible based on patient's age to complete this topic [facility]-Rotavirus Vaccines Aged Out No lo nger eligible based on patient's age to complete this topic Insurance Member Subscriber Plan / Payer (Ef fective 2003-Present) Name:Mayo Reynolds Member ID:[id number] Relation to Subscriber:Self Name:Mayo Reynolds Subscriber ID:[id number] Payer ID:MEDICARE Group ID:Not on file Type:Medicare Address: [place] [id number] Care Teams Information Systems Security Specialist Relationship Specialty Start Date End Date Uriel Francois MD [address] [place] [address] PCP - General Internal Medicine 12/18/22
--- OUTSIDE RECORDS SUMMARY | 2025-09-06 09:16 | XMS_ITS | Clinical Summary ---
Author Organization [facility] Address [address] [place] [address] Care Team Providers Care Hourly Team Members Name Role Phone Uriel Francois MD Primary Care Provider [phone] Allergies Active Allergy Reactions Criticality Noted Date Comments Statins Unknown - Low Severity 01/19/2022 Medications [place]-3 Fatty Acids (OMEGA-3 FISH OIL PO) Take 500 mg by mouth Daily. Active Calcium Carb-Cholecalci ferol 500-600 MG-UNIT tablet Take 1 tablet by mouth Daily. Active aspirin (aspirin) 81 MG EC tablet Take 1 tablet by mouth Daily. Active lisinopril (PRINIVIL,ZESTR IL) 10 MG tablet Take 0.5 tablets by mouth 2 (Two) Times a Day. 01/08/2022 Active diphenhydrAMINE -acetaminophen (TYLENOL PM) 25-500 MG tablet per tablet Take 1 tablet by mouth At Night As Needed for Sleep. Active carvedilol (COREG) 6.25 MG tablet Take 1 tablet by mouth 2 (Two) Times a Day With Meals. 180 tablet 1 11/29/2023 Active Active Problems Problem Noted Date Diagnosed Date Paroxysmal atrial fibrillation 07/21/2021 Overview (07/21/2021): ECV to SR 04-20-21 Coronary artery disease invo lving wiyot coronary artery of wiyot heart without angina pectoris 07/21/2021 Overview (07/21/2021): Non-ST elevation [place]. Left heart catheterization, 04/20/2021 [facility]. 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 2-week Zio, 05/01/2019: Sinus rhythm, occasional PVCs (1.3%), freauent PAC's (27%), occasional SVT, up to 15 beats. b. Echocardiogram, 05/22/2019: EF 60%. Mild biatrial enlargement. Grade I diastolic dysfunction. Mild MR/AI/PI/TR. Essential hypertension 04/30/2019 Dyslipidemia 04/30/2019 Overview (07/10/2019): Intolerant to statins GERD (gastroesophageal reflux disease) 9 Resolved Problems Problem Noted Date Diagnosed Date Resolved Date Fall 05/01/2019 07/21/2021 Concussion 05/01/2019 07/21/2021 Family History Medical History Relation Name Comments Cancer Brother Cancer Father No Known Problems Mother Relation Name Status Comments Brother Father Mother Social History Tobacco Use Types Packs/Day Years Used Date Smoking Tobacco: Never Smokeless Tobacco: Never Tobacco Cessation:Counseling Given: Not Answered Alcohol Use Standard Drinks/Week Comments No 0 (1 standard drink = 0.6 oz pur e alcohol) AUDIT-C Answer Date Recorded Frequency of Alcohol Consumption Never 05/01/2019 Average Number of Drinks Not on file 019 Frequency of Binge Drinking Not on file 05/2019 Abuse Screen Answer Date Recorded Unsafe at Home or Work/School Not on file Feels Threatened by Someone? Not on file 10/2023 Does Anyone Keep You from Co ntacting Others or Doint Things Outside the Home? Not on file 09/05/2023 Physical Sign of Abuse Present Not on file 1 Housing Stability Answer Date Recorded Current Living Arrangements Not on file 08/25 Potentially Unsafe Housing Conditions Not on alex e 09/05/2023 Family and Community Support Answer Evelio e Recorded Help with Day-to-Day Activities Not on file 09/05/2023 Lonely or Isolated Not on file 09/05/2023 Employment Answer Date Recorded Do you want help finding or keeping work or a earlene b? Not on file 09/05/2023 Disabilities Answer Date Recorded Concentrating, Remembering, or Making Decisions Difficulty Not on file 09/05/2023 Doing Errands Independently Difficulty Not on fi le 09/05/2023 Education Answer Date Recorded Help with school or training? Not on file Preferred Language Not on file 09/05/2023 Comments Unknown Sex and Gender Information Value Date Recorded Sex Assigned at Not on file Legal Sex Female 10:40 AM EDT Gender Identity Not on file Sexual Orientation Not on file Last Filed Vital Signs Vital Sign Reading Time Taken Comments Blood Pressure 138/72 07/22/2024 1:01 PM EDT Pulse 60 07/22/2024 1:01 PM EDT Temperature 36.8 C (98.2 F) 07/18/2020 11:45 AM EDT Respiratory Rate - - Oxygen Saturation 98% 07/22/2024 1:01 PM EDT Inhaled Oxygen Concentration - - Weight 50.7 kg (111 lb 12.8 oz) 07/22/2024 1:01 PM EDT Height 157.5 cm (5' 2 ) 07/22/2024 1:01 PM EDT Body Mass Index 20.45 07/22/2024 1:01 PM EDT Plan of Treatment Health Maintenance Due Date Last Done Comments DXA SCAN 1940 LIPID PANEL 1938 TDAP/TD VACCINES (1 - Tdap) 1957 Pneumococcal Vaccine 50+ (1 of 1 - PCV) 1988 ZOSTER VACCINE (1 of 2) 1988 RSV Vaccine - Adults (1 - 1- dose 75+ series) 2013 ANNUAL WELLNESS VISIT 04/30/2019 INFLUENZA VACCINE 06/25/2025 09/06/2021, 08/02/2020 COVID-19 Vaccine (5 - 2024-2 6 season) 2025 06/18/2022, 09/27/2021, 01/27/2021, Additional history exists Insurance MEDICARE A & B [facility] SUPP Advance Directives Documents on File Type Date Recorded Patient Pressfitter Expl anation LIVING WILL - SCAN 05/04/2019 11:14 AM Care Teams Hourly Team Members Relationship Specialty Start Date End Date Uriel Francois MD [address] [facility] [address] [place] [address] PCP - General Adolescent Medicine 07/21/21
--- NOTE | 2025-09-06 09:30 | CA_ITS ---
APPROVED REPORT EXAM: Comprehensive 2D, Doppler, and color-flow Echocardiogram Commercial Leasing Agent: Beronica Le RT(R) Ht: 5 ft 2 in Wt: 111lbs BSA: 1.49 BP: 181/89 mmHg Indications: afib, cad 2D Dimensions LVEF (Chase's) 45.60 % F: 54 - 74 LV Volume 67.30 mL F: 46 - 106 LV Volume Index 45.2 mL/m2 F: 29 - 61 LA Volume 19.50 mL LA Volume Index 13.09 mL/m2 (M/F) 16-34 EF AP4 45.30 % EF AP2 46.6 % EF BP 45.6 % GL Strain -16.7 % M-Mode Dimensions RVDd 2.53 cm (0.9-2.6) LA Diam 2.91 cm (1.9-4.0) LVDd 4.38 cm (3.5-5.7) LVDs 3.31 cm (3.5-5.7) IVSd 0.85 cm (0.6-1.1) PWd 0.71 cm (0.6-1.1) EF (Teich) 48.70% FS 24.40% EDV (Teich) 86.80 mL ESV (Teich) 44.50 mL LV Diastology E Decel Time 187 (160-240 msec) E/A Ratio 0.4 Aortic Valve NIKHIL Index 1.14 cm2/m2 AoV Peak Cornelius. 126.0 (50-130 cm/s) AO Peak GR. 6.30 mmHg AO Mean GR. 3.10 (<5 mmHg) AO VTI 27.6 (18-25 cm) NIKHIL (VTI) 1.73 (2.5-4.5 cm2) Mitral Valve MV E Max Cornelius. 41.0 (40-130 cm/s) MV A Velocity 100.0 (40-130 cm/s) E/A Ratio 0.41 MV PHT 55.0 ms Tricuspid Valve TR P. Velocity 262.00 cm/s RAP Estimate 10.00 mmHg RVSP 37.40 mmHg Left Ventricle The left ventricle is normal size. Left ventricular systolic function is normal. The left ventricular ejection fraction is within the normal range. There is increased left ventricular wall thickness. There is normal LV segmental wall motion. Transmitral Doppler flow pattern suggests impaired LV relaxation. LVEF is 55% Right Ventricle The right ventricle is mildly dilated. The right ventricular systolic function is normal. Atria The left atrium is mildly dilated. The right atrium is mildly dilated. There is no color Doppler evidence of interatrial shunt. Aortic Valve The aortic valve is mildly thickened. There is no hemodynamically significant aortic valvular stenosis. Mild aortic regurgitation is present. Mitral Valve The mitral valve is mildly thickened. No evidence of mitral valve stenosis. Mild mitral regurgitation is present. Tricuspid Valve The tricuspid valve leaflets are thin and pliable. Trace tricuspid regurgitation. There is insufficient TR jet to estimate RVSP. Pulmonic Valve The pulmonary valve is grossly normal in structure. Mild pulmonic valve regurgitation is present. Great Vessels The aortic root is normal in size. IVC is normal in size and collapses >50% with inspiration. Pericardium There is no pericardial effusion. Other Information Study Quality: Fair Conclusion Normal biventricular systolic function. Mild RV dilation. Biatrial dilation. Mild AI, mild MR, mild PI. Electronically signed by : Maria Elena Wasserman MD 09/08/2025 21:05:16
== END 2025-09-06 23:59 | disposition home or self-care (01) ==
LOC: RT 09:07
PROVIDERS: PCP Internal Medicine Adolescent Medicine; Visit Provider Internal Medicine
DX: I08.8 Other rheumatic multiple valve diseases (principal); I11.9 Hypertensive heart disease without heart failure; I25.10 Atherosclerotic heart disease of native coronary artery without angina pectoris; E78.00 Pure hypercholesterolemia, unspecified; I48.91 Unspecified atrial fibrillation
CPT/HCPCS: 93306

== ENCOUNTER 2025-09-21 09:03 | Outpatient (CLI) | payer MEDICARE, BC, SELFPAY ==
--- OUTSIDE RECORDS SUMMARY | 2025-09-21 09:18 | XMS_ITS | Clinical Summary ---
Author Organization [facility] Address [address] [place] [address] Care Team Providers Care Cloth Inspector Name Role Phone Uriel Francois MD Primary Care Provider [phone] Allergies Active Allergy Reactions Criticality Noted Date Comments Statins Unknown - Low Severity 01/19/2022 Medications [place]-3 Fatty Acids (OMEGA-3 FISH OIL PO) Take [...] SR 04-20-21 Coronary artery disease invo lving [place] coronary artery of [place] heart without angina pectoris 07/21/2021 Overview (07/21/2021): Non-ST elevation [place]. Left heart catheterization, 04/20/2021 [facility]. 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% Statin intolerance [...] 75+ series) 2013 ANNUAL WELLNESS VISIT 04/30/2019 COVID-19 Vaccine (3 - Modern a risk series) 07/16/2022 06/18/2022, 09/27/2021, 01/27/2021, Additional history exists INFLUENZA VACCINE 06/25/2025 09/06/2021, 08/02/2020 Insurance MEDICARE A & B [facility] SUPP Advance Directives Documents on File Type Date Recorded Patient Police Judge Expl anation LIVING WILL - SCAN 05/04/2019 11:14 AM Care Teams Cloth Inspector Relationship Specialty Start Date End Date Uriel Francois MD [facility] [address] [facility] [place] [address] PCP - General Adolescent Medicine 07/21/21
[2025-09-21 09:27] LABS: Hematocrit 39.9 % (37.0-47.0); Hemoglobin 12.4 g/dL (12.2-16.2); Immature Granulocytes % 0.2 %; Mean Corpuscular HGB Conc 31.1 g/dL (31.8-35.4); Mean Corpuscular Hemoglobin 26.3 pg (27.0-31.2); Mean Corpuscular Volume 84.5 fl (81-99); Nucleated Red Blood Cells % 0 %; Platelet Count 289 K/mm3 (142-424); Red Blood Count 4.72 M/mm3 (4.20-5.40); Red Cell Distribution Width-SD 48.1 fL; White Blood Count 6.3 K/mm3 (4.8-10.8)
[2025-09-21 10:04] LABS: Alanine Aminotransferase 14 U/L (12-78); Albumin Level 3.4 g/dl (3.5-5.0); Alkaline Phosphatase 100 U/L (38-126); Anion Gap 10.6 mEq/L (5-15); Aspartate Amino Transferase 32 U/L (14-36); Bilirubin,Direct 0.3 mg/dl (0.0-0.4); Bilirubin,Indirect 0.5 mg/dL (0.0-0.9); Bilirubin,Total 0.8 mg/dl (0.2-1.3); Bilirubin,Unconjugated 0.5 mg/dL (0.0-1.1); Blood Urea Nitrogen 23 mg/dl (7-17); Calcium 9.2 mg/dl (8.4-10.2); Carbon Dioxide 27 mmol/L (22.0-30.0); Chloride 105 mmol/L (98-107); Cholesterol 197 mg/dl (140-200); Creatinine,Serum 1.20 mg/dl (0.52-1.04); Estimated Glomerular Filt Rate 42 ml/min (>60); GFR (African American) 51 ML/MIN (>60); Glucose 104 mg/dl (74-100); HDL Cholesterol 57 mg/dl (40-60); Magnesium 2.0 mg/dl (1.6-2.3); Potassium 4.6 mmoL/L (3.5-5.1); Sodium 138 mmol/L (136-145); Total Protein,Serum 6.6 g/dl (6.3-8.2); Triglycerides 114 mg/dl (30-150)
[2025-09-21 10:21] LABS: Free T4 (Free Thyroxine) 1.18 ng/dl (0.78-2.19)
[2025-09-21 10:35] LABS: Thyroid Stimulating Hormone 1.44 uIU/mL (0.465-4.68)
[2025-09-21 12:39] LABS: Folate 15.40 ng/mL; Vitamin B12 > 1000 pg/mL (239-931)
== END 2025-09-21 23:59 | disposition home or self-care (01) ==
PROVIDERS: PCP Internal Medicine Adolescent Medicine; Visit Provider Physician Assistant
DX: I25.10 Atherosclerotic heart disease of native coronary artery without angina pectoris (principal); I10 Essential (primary) hypertension; E78.00 Pure hypercholesterolemia, unspecified; R71.8 Other abnormality of red blood cells
CPT/HCPCS: 36415; 80048; 80061; 80076; 82607; 82746; 83735; 84439; 84443; 85025